=== PATIENT | female | born 1960 | race Caucasian/White ===

== ENCOUNTER → 2017-12-01 11:05 | Outpatient (CLI) | payer OTHER, SELFPAY ==
--- NOTE | 2017-12-01 | DI.MG.S_ITS ---
BILATERAL DIGITAL SCREENING MAMMOGRAM 3D/2D WITH CAD: 12/01/2017 CLINICAL: Screening Mammogram. Comparison is made to exams dated: 11/29/2016 mammogram, 11/28/2015 mammogram, and 11/26/2014 mammogram - [facility]. The tissue of both breasts is extremely dense, which lowers the sensitivity of mammography. Current study was also evaluated with a Computer Aided Detection (CAD) system. There is an oval asymmetry in the left breast posterior depth inner region seen on the craniocaudal view only. No other significant masses, calcifications, or other findings are seen in either breast. IMPRESSION: INCOMPLETE: NEEDS ADDITIONAL IMAGING EVALUATION The oval asymmetry in the left breast is indeterminate. Additional views with possible ultrasound are recommended. This exam was interpreted at Station ID: [id number]. NOTE: For mammograms, a report in lay terms will be sent to the patient. Approximately 15% of breast malignancies will not be visualized mammographically. In the management of a palpable breast mass, a negative mammogram must not discourage biopsy of a clinically suspicious lesion. Electronically Signed By: Alex Logan M.D. ecl/:12/04/2017 02:03:28 letter sent: Additional Imaging Needed ACR BI-RADS Category 0: Incomplete 3340F
== END ==
PROVIDERS: PCP Family Medicine; Visit Provider Family Medicine
DX: Z12.31 Encounter for screening mammogram for malignant neoplasm of breast (principal)
CPT/HCPCS: 77063; 77067

== ENCOUNTER → 2017-12-16 10:18 | Outpatient (CLI) | payer OTHER, SELFPAY ==
--- NOTE | 2017-12-16 | DI.MG.S_ITS ---
UNILATERAL LEFT DIGITAL DIAGNOSTIC MAMMOGRAM 3D/2D WITH ADDITIONAL VIEWS: 12/16/2017 CLINICAL: Additional evaluation requested from prior study. Comparison is made to exams dated: 12/01/2017 mammogram, 11/29/2016 mammogram, and 11/28/2015 mammogram - [facility]. The tissue of left breast is extremely dense, which lowers the sensitivity of mammography. There is a benign oval equal density asymmetry with an indistinct margin in the left breast posterior depth medial region seen on the craniocaudal view only. This is not seen in additional views. No other significant masses or calcifications are seen in the breast. IMPRESSION: There is no mammographic evidence of malignancy. A 1 year screening mammogram is recommended. This exam was interpreted at Station ID: [id number]. NOTE: For mammograms, a report in lay terms will be sent to the patient. Approximately 15% of breast malignancies will not be visualized mammographically. In the management of a palpable breast mass, a negative mammogram must not discourage biopsy of a clinically suspicious lesion. Electronically Signed By: Leandro harmon/jorje:12/16/2017 11:43:59 letter sent: Normal Exam ACR BI-RADS Category 2: Benign Finding(s) 3342F
== END ==
PROVIDERS: PCP Family Medicine; Visit Provider Family Medicine
DX: R92.8 Other abnormal and inconclusive findings on diagnostic imaging of breast (principal)
CPT/HCPCS: 77065; G0279

== ENCOUNTER → 2018-05-12 08:03 | Outpatient (CLI) | payer OTHER, SELFPAY ==
[2018-05-12 09:54] LABS: Vitamin D 25 Hydroxy (D3) 40.3 ng/mL (30.0-100.0)
== END ==
PROVIDERS: PCP Family Medicine; Visit Provider Psychiatry & Neurology Neurology
DX: E55.9 Vitamin D deficiency, unspecified (principal)
CPT/HCPCS: 82306

== ENCOUNTER → 2018-06-12 15:27 | Outpatient (CLI) | payer OTHER, SELFPAY ==
--- NOTE | 2018-06-12 | DI.MRI.S_ITS ---
PROCEDURE: MR STROKE Pre- and post-contrast brain MRI, non-contrast brain MR angiogram, pre- and postcontrast neck MR angiogram INDICATIONS: 4 episodes of left sided vision loss followed by dizziness. TECHNIQUE: Brain: Noncontrast axial T1 spin echo, axial T2 fast spin echo, sagittal and axial FLAIR, coronal T2 fast spin echo, axial gradient echo, axial diffusion and ADC through the brain. After the administration of contrast, axial 3D VIBE of the cranial vasculature and brain. Brain MRA: Non-contrast 3-D time of flight MR angiogram, with multiple sasfxnv-msolrimoz-xgzagcnaje (MIP) reformats performed. Neck MRA: Axial and sagittal TruFISP through the neck. Coronal dynamic MR angiogram during administration of contrast in the arterial and venous phases, with 3-dimenstional hewdeuu-bvakbelsi-xyjsoidsyb (MIP) reformats constructed from subtraction images. COMPARISON: [facility], , MR STROKE PROTOCOL, 07/22/2016, 18:16. FINDINGS: Image quality: Excellent. BRAIN: CSF spaces: Ventricles are normal in size and shape. Basal cisterns are patent. No extra-axial fluid collections. Brain: No intracranial bleeds or mass effects. Small, approximately 6 mm in diameter right frontal, parafalcine extra-axial mass is stable compared to 07/22/2016. Alonzo-white matter interface is normal. Diffusion weighted images show no acute ischemic insults. There is mild, diffuse cerebral white loss. There mild to moderate periventricular and subcortical white matter chronic microvascular ischemic changes which are not significantly changed compared to 07/22/2016. Brainstem appears normal. Normal intravascular flow voids are present. No abnormal intracranial enhancement. Skull and face: Calvarial marrow signal is normal. Orbits appear normal. Sinuses: Sinuses and mastoids are clear. BRAIN MR ANGIOGRAM: Anterior circulation: Intracranial internal carotid arteries are normal in size and enhancement. The flow within the paired anterior cerebral arteries is normal and symmetric. The flow within the middle cerebral arteries is normal and symmetric. The anterior communicating artery is seen. No stenoses, occlusions, or aneurysms. Posterior circulation: The visualized portions of the vertebral arteries demonstrate normal caliber, and join to form a normal appearing basilar artery. The flow within the posterior cerebral arteries is normal and symmetric. No stenoses, occlusions, or aneurysms. NECK MR ANGIOGRAM: Carotids: Great vessels demonstrate a conventional anatomy as they arise from the aortic arch. The origins of the common carotid arteries appear patent. The calibers and courses of both common carotid arteries are normal. The bifurcation regions appear normal bilaterally. The internal carotid arteries demonstrate normal course and caliber. Posterior circulation: The origins of the vertebral arteries appear patent. More superior portions of both vertebral arteries demonstrate normal course and caliber, and join to form a normal appearing basilar artery. Miscellaneous: Subclavian arteries appear patent. Pre-contrast images through the neck show no soft tissue abnormalities. IMPRESSION: BRAIN MRI: 1. No acute intracranial disease process. 2. No areas of acute or chronic infarction. 3. Small, approximately 6 mm in diameter right frontal convexity, parafalcine enhancing extra-axial mass which is stable compared to prior MRI and which likely represents a small meningioma. 4. Mild, diffuse cerebral volume loss. 5. Gfpm-fa-lcoffxbi periventricular and subcortical white matter chronic microvascular ischemic changes. BRAIN MR ANGIOGRAM: Negative examination. NECK MR ANGIOGRAM: Negative examination. Dictated by: Radha Perez MD, PhD on 06/12/2018 at 17:22 Approved by: Radha Perez MD, PhD on 06/12/2018 at 17:30
== END ==
PROVIDERS: PCP Family Medicine; Visit Provider Psychiatry & Neurology Neurology
DX: G45.9 Transient cerebral ischemic attack, unspecified (principal); G35 Multiple sclerosis
CPT/HCPCS: 70548; 70553; A9579

== ENCOUNTER → 2018-12-14 09:24 | Outpatient (CLI) | payer OTHER, SELFPAY ==
--- NOTE | 2018-12-14 09:27 | DI.MG.S_ITS ---
BILATERAL DIGITAL SCREENING MAMMOGRAM 3D/2D WITH CAD: 12/14/2018 CLINICAL: Routine screening. Comparison is made to exams dated: 12/01/2017 mammogram, 11/29/2016 mammogram, and 11/28/2015 mammogram - [facility]. The tissue of both breasts is extremely dense, which lowers the sensitivity of mammography. Current study was also evaluated with a Computer Aided Detection (CAD) system. No significant masses, calcifications, or other findings are seen in either breast. There has been no significant interval change. IMPRESSION: NEGATIVE There is no mammographic evidence of malignancy. A 1 year screening mammogram is recommended. This exam was interpreted at Station ID: [id number]. NOTE: For mammograms, a report in lay terms will be sent to the patient. Approximately 15% of breast malignancies will not be visualized mammographically. In the management of a palpable breast mass, a negative mammogram must not discourage biopsy of a clinically suspicious lesion. Electronically Signed By: Leandro harmon/jorje:12/14/2018 13:53:13 letter sent: Normal Exam ACR BI-RADS Category 1: Negative 3341F
== END ==
PROVIDERS: PCP Family Medicine; Visit Provider Family Medicine
DX: Z12.31 Encounter for screening mammogram for malignant neoplasm of breast (principal)
CPT/HCPCS: 77063; 77067

== ENCOUNTER → 2019-12-17 08:10 | Outpatient (CLI) | payer OTHER, SELFPAY ==
--- NOTE | 2019-12-17 | DI.MG.S_ITS ---
BILATERAL DIGITAL SCREENING MAMMOGRAM 3D/2D WITH CAD: 12/17/2019 CLINICAL: Routine screening. Comparison is made to exams dated: 12/14/2018 mammogram, 12/16/2017 mammogram, and 12/01/2017 mammogram - [facility]. The tissue of both breasts is extremely dense, which lowers the sensitivity of mammography. Current study was also evaluated with a Computer Aided Detection (CAD) system. No significant masses, calcifications, or other findings are seen in either breast. There has been no significant interval change. IMPRESSION: NEGATIVE There is no mammographic evidence of malignancy. A 1 year screening mammogram is recommended. This exam was interpreted at Station ID: [id number]. NOTE: For mammograms, a report in lay terms will be sent to the patient. Approximately 15% of breast malignancies will not be visualized mammographically. In the management of a palpable breast mass, a negative mammogram must not discourage biopsy of a clinically suspicious lesion. Electronically Signed By: Thu pearson/jorje:12/19/2019 12:11:13 letter sent: Normal Exam ACR BI-RADS Category 1: Negative 3341F
== END ==
PROVIDERS: PCP Family Medicine; Referring Provider Family Medicine; Visit Provider Family Medicine
DX: Z12.31 Encounter for screening mammogram for malignant neoplasm of breast (principal)
CPT/HCPCS: 77063; 77067

== ENCOUNTER → 2020-03-03 11:59 | Outpatient (CLI) | payer OTHER, SELFPAY ==
--- NOTE | 2020-03-03 12:07 | DI.RAD.S_ITS ---
PROCEDURE: XR CERVICAL SPINE 2V OR 3V INDICATIONS: POST SURGERY FALL TECHNIQUE: 3 view(s) of the cervical spine were acquired. COMPARISON: [facility] [place], CR, XR CERVICAL SPINE 2 OR 3 VIEWS, 12/22/2016, 9:10. FINDINGS: Bones: No fracture. Straightening of the normal lordotic curvature. Chronic osseous fusion of the C4-C5-C5-C6 vertebral bodies. There is also C6-C7 ACDF with interbody cage graft. Remaining cervical disc spaces mildly narrowed. Multilevel degenerative endplate sclerosis and spurring. Diffuse facet arthropathy. There is lucency at the bone metal interface of the inferior fixation screws at C7 Soft tissues: No prevertebral soft tissue swelling. IMPRESSION: No acute fracture identified. Chronic postsurgical and degenerative changes as above. Incidentally noted lucency at the bone metal interface of the inferior C6-C7 ACDF screws which is progressed since 12/22/16, raising possibility of hardware loosening or infection however this is technically indeterminate given the absence of more recent comparison studies. If clinically warranted, continued serial radiographic surveillance could be performed. Dictated by: Oscar Ahn M.D. on 03/03/2020 at 14:54 Approved by: Oscar Ahn M.D. on 03/03/2020 at 14:57
== END ==
PROVIDERS: PCP Family Medicine; Referring Provider Neurological Surgery; Visit Provider Neurological Surgery
DX: M47.22 Other spondylosis with radiculopathy, cervical region (principal); Z98.1 Arthrodesis status
CPT/HCPCS: 72040

== ENCOUNTER 2020-11-16 10:41 | Emergency (ER) | payer OTHER, SELFPAY ==
[2020-11-16 10:50] VITALS: BP 183/99; PULSE 76; RESP 14; TEMP 36.5; O2SAT 100; BMI 20.1
[2020-11-16 11:18] LABS: COVID19 -Nasal RAPID Negative (Negative)
--- NOTE | 2020-11-16 11:22 | ED_ITS ---
HPI - Headache General Chief Complaint: Headache Stated Complaint: Migraine- numbness in hands/mouth, weakness Time Seen by Provider: 11/16/20 11:13 Mode of arrival: Ambulatory Limitations: no limitations History of Present Illness HPI Narrative: Patient is a 60-year-old female. Has a history of migraine headaches. Also has a history of MS. A neurologist that she sees. States that she has had atypical migraines in the past. Has had hemiplegic migraines. States over the past several days/weeks she has had more frequent headaches. Normally she just takes Tylenol at home goes and lays down and this helps her symptoms. This morning she woke up did not have a headache but it did start as the day went on. She also stated that she had some tingling in her left hand and also some tingling around her mouth. She states that the oral symptoms have resolved and the tingling in her left hand has improved but not completely resolved. States that the headache an care doctor feels like to switch of her prior headaches. She did take 1 regular strength Tylenol approximately 1 hour prior to arrival here in the ER. Related Data Home Medications Medication Instructions Recorded Confirmed vitamin B complex (B 1 tab PO QDAY #0 09/13/16 11/16/20 Complex-Vitamin B12) aspirin 81 mg tablet,delayed 81 mg PO DAILY 12/26/19 11/16/20 release Allergies Allergy/AdvReac Type Severity Reaction Status Date / Time levofloxacin [LEVOFLOXACIN] Allergy Unknown Verified 11/16/20 10:54 Review of Systems Constitutional Constitutional: Denies fever(s) and Reports headache(s) Eyes Comments: Black spots in her eyes but this normally happens with headaches ENT Ears, Nose, Mouth, and Throat: Reports system reviewed and no additional complaints, except as documented, Reports as per HPI and Reports headache(s) Cardiovascular Cardiovascular: Reports system reviewed and no additional complaints, except as documented Respiratory Respiratory: Reports system reviewed and no additional complaints, except as documented Musculoskeletal Musculoskeletal: Reports system reviewed and no additional complaints, except as documented Integumentary/Breasts Skin/Breast: Reports system reviewed and no additional complaints, except as documented Neurologic Neurologic: Reports system reviewed and no additional complaints, except as documented and Reports headache(s) Hematologic/Lymphatic On Anticoagulants: No Allergic/Immunologic Allergic/Immunologic: Reports system reviewed and no additional complaints, except as documented Patient History Medical History Multiple sclerosis Stenosis, cervical spine Vaginal atrophy (~06/2020) Surgical History (Updated 06/07/17 @ 06:15 by Conversion Provider) History of hip replacement History of spinal fusion Family History (Updated 02/11/15 @ 00:00 by Conversion Provider) Father Cancer Heart disease Mother Diabetes mellitus Heart disease Hypertension High cholesterol Stroke Social History Smoking Status: Never smoker Smoking Status: Never smoker alcohol intake frequency: 0-2 drinks per day Substance Use Type: does not use Exam Initial Vital Signs Initial Vital Signs: Vital Signs Temperature 97.7 F 11/16/20 10:50 Pulse Rate 76 11/16/20 10:50 Respiratory Rate 14 11/16/20 10:50 Blood Pressure 183/99 H 11/16/20 10:50 Pulse Oximetry 100 11/16/20 10:50 Const General: cooperative and healthy appearing HENNE Head: normal to inspection and normocephalic Face and sinus: normal facial exam Mouth: oral mucosae normal Eyes General: appearance normal, both eyes and all related structures Resp Effort & Inspection: normal respiratory effort Cardio Rate: regular rate GI Inspection: normal to inspection Skin General: no rashes or lesions noted Neuro General: patient alert, patient awake, patient oriented x3 and moves all extremities Cranial Nerves: CN's II-XI intact bilaterally Cognition: normal cognition Speech: speech normal Motor: muscle tone normal throughout Sensory Exam: no sensory deficits noted Extrem General: normal to inspection and capillary refill normal Course Orders Ordered: ED Orders 11/16/20 10:56 COVID19 -Nasal swab/Pre-Proc Stat 11/16/20 11:15 Basic Metabolic Panel Stat Complete Blood Count AUTO DIFF Stat Discontinued Medications Acetaminophen (Acetaminophen 325 Mg Tablet) 650 mg PO NOW ONE Stop: 11/16/20 11:24 Last Admin: 11/16/20 11:38 Dose: 650 mg Documented by: CTR.HANDER Diphenhydramine HCl (Diphenhydramine 50 Mg/Ml Vial) 25 mg IV NOW ONE Stop: 11/16/20 11:24 Last Admin: 11/16/20 11:37 Dose: 25 mg Documented by: CTR.HANDER Sodium Chloride (Normal Saline 0.9%) 1,000 mls @ 1,000 mls/hr IV BOLUS ONE Stop: 11/16/20 12:22 Last Admin: 11/16/20 11:37 Dose: 1,000 mls/hr Documented by: CTR.HANDER Ketorolac Tromethamine (Ketorolac 30 Mg/Ml Vial) 60 mg IM NOW ONE Stop: 11/16/20 11:24 Last Admin: 11/16/20 11:37 Dose: 60 mg Documented by: CTRNishaHANDER Metoclopramide HCl (Metoclopramide 10 Mg/2 Ml Inj) 10 mg IV NOW ONE Stop: 11/16/20 11:24 Last Admin: 11/16/20 11:37 Dose: 10 mg Documented by: CTRLOTTIE Vital Signs Vital signs: Vital Signs - 8 hr 11/16/20 10:50 11/16/20 11:57 Temperature 97.7 F Pulse Rate 76 66 Respiratory Rate 14 18 Blood Pressure 183/99 H 136/79 Pulse Oximetry 100 100 MDM - Headache Lab Data Result diagrams: 11/16/20 11:15 11/16/20 11:15 Labs: Lab Results 11/16/20 11/16/20 11/16/20 Range/Units 10:56 11:15 11:15 WBC 6.2 (4.5-11.0) X10^3/uL RBC 4.43 (4.0-5.2) X10^6/uL Hgb 14.0 (12.0-16.0) g/dL Hct 42.1 (36-46) % MCV 94.9 (80-100) fL MCH 31.5 (26-34) PG MCHC 33.1 (30-36) % RDW 12.3 (11.6-14.8) % Plt Count 320 (150-400) X10^3/uL Neut % (Auto) 60.4 (50-75) % Lymph % (Auto) 28.5 (25-40) % [place] % (Auto) 6.6 (3-14) % Eos % (Auto) 3.3 (2-4) % Baso % (Auto) 1.2 (0-2) % Neut # (Auto) 3800 (2093-1418) /uL Lymph # (Auto) 1800 (2429-7258) /uL [place] # (Auto) 400 (0-900) /uL Eos # (Auto) 200 (0-450) /uL Baso # (Auto) 100 (0-100) /uL Sodium 136 L (137-145) mmol/L Potassium 4.3 (3.4-5.1) mmol/L Chloride 99 (98-107) mmol/L Carbon Dioxide 30 (22-32) mmol/L BUN 15 (7-17) mg/dL Creatinine 0.71 (0.52-1.04) mg/dL Estimated GFR > 60.0 (>60) mL/min BUN/Creatinine Ratio 21.1 (6-22) Glucose 134 H (80-110) mg/dL Calcium 9.1 (8.4-10.2) mg/dL SARS-CoV-2 (PCR) Negative (Negative) MDM Narrative Medical decision making narrative: Patient reports complete resolution of all of her symptoms with the medications provided here in the emergency department. I have low suspicion for meningitis. Low suspicion for intracerebral hemorrhage. Feel that we can hold on any radiologic studies. Low suspicion for CVA. Patient asking to be discharged home. She was given return precautions and follow-up instructions. She expressed understanding and agreement. Discharge Plan Departure Patient Disposition: Home Clinical Impression: Migraine Instructions: DI for Migraine Activity Restrictions/Additional Instructions: I recommend you contact your primary doctor for follow-up and continue to take all of your medications as directed. Return to the emergency department for any new or worsening symptoms. Prescriptions: No Action vitamin B complex [B Complex-Vitamin B12] 1 EACH tablet 1 tab PO QDAY Qty: 0 RF: 0 aspirin 81 mg tablet,delayed release (DR/EC) 81 mg PO DAILY RF: 0 Referrals: Yaz Ordaz MD [Primary Care Provider] -
[2020-11-16 11:34] LABS: Add Manual Diff / Slide Review NO; Basophils Absolute Auto 100 /uL (0-100); Basophils Percent Auto 1.2 % (0-2); Eosinophils Absolute Auto 200 /uL (0-450); Eosinophils Percent Auto 3.3 % (2-4); Hematocrit 42.1 % (36-46); Lymphocytes Absolute Auto 1800 /uL (1100-4500); Lymphocytes Percent Auto 28.5 % (25-40); Mean Corpuscular HGB Conc 33.1 % (30-36); Mean Corpuscular Hemoglobin 31.5 PG (26-34); Mean Corpuscular Volume 94.9 fL (80-100); Monocytes Absolute Auto 400 /uL (0-900); Monocytes Percent Auto 6.6 % (3-14); Neutrophils Absolute Auto 3800 /uL (1500-7000); Neutrophils Percent Auto 60.4 % (50-75); Platelet Count 320 X10^3/uL (150-400); Red Blood Cell Count 4.43 X10^6/uL (4.0-5.2); Red Cell Distribution Width 12.3 % (11.6-14.8); White Blood Cell Count 6.2 X10^3/uL (4.5-11.0)
[2020-11-16] MEDS: KETOROLAC 30 MG/ML VIAL 60 MG IM (11:37)
[2020-11-16] MEDS: METOCLOPRAMIDE 10 MG/2 ML INJ IV (11:37)
[2020-11-16] MEDS: diphenhydrAMINE 50 MG/ML VIAL 25 MG IV (11:37)
[2020-11-16] MEDS: SODIUM CHLORIDE 0.9% 1,000 ML 1000 ML IV (11:37)
[2020-11-16] MEDS: ACETAMINOPHEN 325 MG TABLET 650 MG PO (11:38)
[2020-11-16 11:57] VITALS: BP 136/79; PULSE 66; RESP 18; O2SAT 100
[2020-11-16 12:30] LABS: BUN Creatinine Ratio 21.1 (6-22); Blood Urea Nitrogen 15 mg/dL (7-17); Calcium 9.1 mg/dL (8.4-10.2); Carbon Dioxide 30 mmol/L (22-32); Chloride 99 mmol/L (98-107); Estimated Glomerular Filt Rate > 60.0 mL/min (>60); Glucose 134 mg/dL (80-110); HEMOLYSIS < 15 (0-50); Potassium 4.3 mmol/L (3.4-5.1); Sodium 136 mmol/L (137-145)
[2020-11-16 13:16] VITALS: BP 118/66; PULSE 65; RESP 16; O2SAT 99
== END 2020-11-16 13:17 | disposition home or self-care (01) ==
PROVIDERS: Emergency Provider Emergency Medicine; PCP Family Medicine
DX: G43.909 Migraine, unspecified, not intractable, without status migrainosus (principal); Z20.822 Contact with and (suspected) exposure to COVID-19
CPT/HCPCS: 36415; 80048; 85025; 87635; 96361; 96372; 96374; 96375; 99284; C9803; J1200; J1885; J2765

== ENCOUNTER → 2021-03-02 07:58 | Outpatient (CLI) | payer OTHER, SELFPAY ==
[2021-03-02 08:45] LABS: Add Manual Diff / Slide Review NO; Basophils Absolute Auto 100 /uL (0-100); Eosinophils Absolute Auto 100 /uL (0-450); Eosinophils Percent Auto 1.8 % (2-4); Hemoglobin 12.7 g/dL (12.0-16.0); Lymphocytes Absolute Auto 1700 /uL (1100-4500); Lymphocytes Percent Auto 24.3 % (25-40); Mean Corpuscular HGB Conc 34.3 % (30-36); Mean Corpuscular Volume 93.2 fL (80-100); Monocytes Absolute Auto 400 /uL (0-900); Monocytes Percent Auto 5.9 % (3-14); Neutrophils Absolute Auto 4700 /uL (1500-7000); Platelet Count 322 X10^3/uL (150-400); Red Blood Cell Count 3.97 X10^6/uL (4.0-5.2); Red Cell Distribution Width 12.4 % (11.6-14.8); White Blood Cell Count 7.1 X10^3/uL (4.5-11.0)
[2021-03-02 08:58] LABS: Alanine Aminotransferase 15 IU/L (<35); Albumin 4.2 g/dL (3.5-5.0); Albumin Globulin Ratio 1.7 (1.0-2.8); Alkaline Phosphatase 65 U/L (38-126); Aspartate Aminotransferase 28 IU/L (14-36); BUN Creatinine Ratio 22.4 (6-22); Bilirubin Total 0.6 mg/dL (0.2-1.3); Blood Urea Nitrogen 17 mg/dL (7-17); Calcium 9.3 mg/dL (8.4-10.2); Carbon Dioxide 26 mmol/L (22-32); Chloride 103 mmol/L (98-107); Estimated Glomerular Filt Rate > 60.0 mL/min (>60); Globulin 2.5 g/dL (1.7-4.1); Glucose 101 mg/dL (80-110); HEMOLYSIS < 15 (0-50); Potassium 4.5 mmol/L (3.4-5.1); Sodium 134 mmol/L (137-145); Total Protein 6.7 g/dL (6.3-8.2)
== END ==
PROVIDERS: PCP Family Medicine; Referring Provider Obstetrics & Gynecology Gynecologic Oncology; Visit Provider Obstetrics & Gynecology Gynecologic Oncology
DX: C54.1 Malignant neoplasm of endometrium (principal)
CPT/HCPCS: 36415; 80053; 85025

== ENCOUNTER → 2021-03-04 07:46 | Outpatient (CLI) | payer OTHER, SELFPAY ==
--- NOTE | 2021-03-04 | DI.CT.S_ITS ---
PROCEDURE: CT CHEST ABDOMEN W CON INDICATIONS: Malignant neoplasm of endometrium TECHNIQUE: After the administration of oral contrast and intravenous contrast, 5 mm thick sections acquired from the lung apices to the iliac crests. 5 mm coronal and sagittal reformats were performed, with additional 7 mm coronal MIP reformats through the lungs. For radiation dose reduction, the following was used: automated exposure control, adjustment of mA and/or kV according to patient size. COMPARISON: None. FINDINGS: Image quality: Excellent. CHEST: Lungs and pleura: 4 mm solid nodule is seen in anterior aspect of left upper lobe series 3, image 79. 2 mm solid nodule is seen in lateral periphery of right middle lobe series 3, image 158. 3-4 mm solid nodule is seen in posterior aspect of left lung base series 3, image 261. Scattered atelectasis in periphery of bilateral lung mulligan are seen. Atelectasis in anterior medial aspect of bilateral lung bases also seen. No pleural effusions or pneumothorax. Central and peripheral airways are patent and normal in caliber. Mediastinum: Heart size is normal. No pericardial effusion. No mediastinal or hilar adenopathy by size criteria. Thoracic aorta and central pulmonary arteries are normal in size. Esophagus is normal in caliber. No hiatal hernia. Chest wall: No axillary or supraclavicular adenopathy by size criteria. Thyroid gland is within normal limits. ABDOMEN: Solid organs: Liver is normal in size and enhancement. Gallbladder is within normal limits. Biliary system is non dilated. Pancreas enhances normally. Spleen is normal in size and enhancement. No adrenal nodules. Kidneys are normal in size and enhancement, without hydronephrosis. Peritoneum and bowel: Bowel loops demonstrate normal wall thickness and caliber. No free fluid or air. Nodes and vessels: No retroperitoneal or mesenteric adenopathy by size criteria. Aorta and inferior vena cava are normal in caliber. Bones: No suspicious bony lesions. No vertebral body compression fractures. Postfusion changes in visualized lower cervical spine are seen. Miscellaneous: No ventral hernias. IMPRESSION: 1. Tiny 3-4 mm bilateral pulmonary nodules as described above and are of indeterminate nature. CT follow-up in 6-12 months can be done for evaluation of stability. Bibasilar atelectasis as above. Scattered atelectasis/scarring also seen in periphery of bilateral lung mulligan. No pleural effusion or pneumothorax. Airway is patent. 2. No abnormally enlarged lymph nodes are seen in chest or abdomen. 3. No evidence of metastatic disease is seen in abdomen. Dictated by: Franco Lyle M.D. on 03/04/2021 at 10:06 Approved by: Franco Lyle M.D. on 03/04/2021 at 10:36
--- NOTE | 2021-03-04 | DI.MRI.S_ITS ---
PROCEDURE: MR PELVIS WO/W CON INDICATIONS: Malignant neoplasm of endometrium TECHNIQUE: Coronal HASTE, sagittal breath-hold T2 FSE; axial T1 FSE with and without fat saturation through the pelvis. Optional long- and short-axis uterine nonbreath-hold T2 FSE through the uterus. Sagittal or axial dynamic VIBE during administration of contrast. Post-contrast axial or coronal VIBE/2-D FLASH with fat saturation from the iliac crests to the symphysis. Optional diffusion weighted imaging and ADC may be performed. COMPARISON: [facility], US, US PELVIC COMPLETE, 02/17/2021, 14:52. [facility], CT, CT CHEST ABDOMEN W CON, 03/04/2021, 9:38. FINDINGS: Image quality: There is mild motion artifact. A left hip prosthesis with associated metallic susceptibility artifact is demonstrated limiting evaluation. Uterus: There is a lobulated T1 hypointense and T2 isointense mass along the endometrial canal centered within the lower uterine segment with extension into the cervix as well as intramural extension into the myometrium within the right aspect of the uterine fundus. The confluent region of the mass in the lower uterine segment and fundus measures approximately 6 cm in longitudinal extent by approximately 3.5 cm in anteroposterior and 3.1 cm in transverse dimension. Addition, contiguous lobulated components are demonstrated extending within the right myometrium distally into the uterine fundus. There is suggestion of extrauterine extension along the right dorsal aspect of the uterine fundus with abutment of adjacent bowel loops. The mass demonstrates hypointense enhancement following contrast administration. There is associated marked fluid distention of the endometrium in the fundus measuring up to 3.7 cm in anterosuperior dimension secondary to obstruction of the endometrium in the lower uterine segment. The mass demonstrates no definite vaginal extension. Adnexa: The ovaries are within normal size limits. There is extrinsic mass effect on the right ovary by a large tubular cystic structure in the right hemipelvis which measures up to 3.6 cm in diameter. A small amount of dependent debris is demonstrated within the tubular structure without internal solid enhancement following contrast administration. Findings are suggestive of marked hydrosalpinx. Urinary system: Bladder wall is normal in thickness. Distal ureters are non distended. Urethra appears normal in morphology. Nodes and vessels: No pelvic or inguinal adenopathy by size criteria. Iliac vessels are normal in size. Bowel and peritoneum: No pathologic free pelvic fluid. Inferior colon and small bowel loops are normal in caliber. Soft tissues: No inguinal hernias. Bones: Marrow demonstrates normal overall signal. IMPRESSION: 1. Lobulated mass along the endometrium centered in the lower uterine segment consistent with patient's history of endometrial carcinoma. 2. Mass extension demonstrated into the cervix as well as into the right myometrium in the uterine fundus. There is also a small focus of likely extrauterine extension along the right dorsal aspect of the uterus with abutment of adjacent bowel loops. 3. Large tubular cystic structure within the right hemipelvis likely represents marked hydrosalpinx. No obstruction noted within the right renal collecting system on recent CT to suggest hydroureter. There is dependent debris within the cystic structure without internal solid enhancement. 4. No pelvic lymphadenopathy by size criteria. 5. Fluid distention of the endometrial canal in the fundus consistent with endometrial obstruction in the lower uterine segment. Dictated by: Leandro Blackman M.D. on 03/04/2021 at 13:08 Approved by: Leandro Blackman M.D. on 03/04/2021 at 13:52
== END ==
PROVIDERS: PCP Family Medicine; Referring Provider Obstetrics & Gynecology Gynecologic Oncology; Visit Provider Obstetrics & Gynecology Gynecologic Oncology
DX: C54.1 Malignant neoplasm of endometrium (principal); R91.8 Other nonspecific abnormal finding of lung field; J98.11 Atelectasis
CPT/HCPCS: 71260; 72197; 74160; A9579; Q9967

== ENCOUNTER → 2021-03-07 08:46 | Outpatient (CLI) | payer OTHER, SELFPAY | PROVIDERS: PCP Family Medicine; Referring Provider Obstetrics & Gynecology Gynecologic Oncology; Visit Provider Obstetrics & Gynecology Gynecologic Oncology | DX: Z01.818 Encounter for other preprocedural examination (principal) | CPT/HCPCS: 93005 ==

== ENCOUNTER 2021-03-14 03:41 | Emergency (ER) | payer OTHER, SELFPAY ==
[2021-03-14 03:45] VITALS: BP 176/70; PULSE 87; RESP 18; TEMP 36.7; O2SAT 98; BMI 19.2
--- NOTE | 2021-03-14 03:55 | ED.FEMALEGU ---
HPI - Female Genitourinary General Chief complaint: Urogenital-Female Stated complaint: catheter not draining properly Time Seen by Provider: 03/14/21 03:47 History of Present Illness HPI Narrative: Patient had is a 60-year-old female who is status post hysterectomy day number 3. She had hysterectomy at [facility] for probable cancer. She had a Le catheter placed postoperatively. Tonight she feels like she does not have as much urine in his her Le catheter bag and she is having increased left lower quadrant pain. She denies any fever or chills. She has been taking Tylenol and ibuprofen to control pain. She denies any nausea or vomiting. She has not had a bowel movement but is had passing gas and taking MiraLax. Related Data Home Medications Medication Instructions Recorded Confirmed vitamin B complex (B 1 tab PO QDAY #0 09/13/16 02/17/21 Complex-Vitamin B12) aspirin 81 mg tablet,delayed 81 mg PO DAILY 12/26/19 02/17/21 release Allergies Allergy/AdvReac Type Severity Reaction Status Date / Time levofloxacin [LEVOFLOXACIN] Allergy Unknown Verified 02/17/21 14:25 Review of Systems Review of Systems Narrative: GENERAL: Denies chills, fatigue, malaise, fever, sweats, travel HEENT: Denies sinus pain, ear pain, sore throat, difficulty swallowing, neck pain RESPIRATORY: Denies dyspnea, cough, wheezing, hemoptysis, sputum. CARDIOVASCULAR: Denies chest pain, palpitations, orthopnea, edema GASTROINTESTINAL: See HP : Denies dysuria, frequency, incontinence, hematuria, urinary retention, flank pain. MUSCULOSKELETAL: Denies weakness, joint pain, or bony pain SKIN: No rash, no erythema, no pruritus NEUROLOGIC: Denies weakness, dizziness, headache, numbness, change in speech, confusion PSYCHIATRIC: No concerning psychosocial issues. 12 point review of systems is negative except for those stated above and HPI Patient History Medical History Multiple sclerosis Stenosis, cervical spine Vaginal atrophy (~06/2020) Surgical History History of hip replacement History of spinal fusion Family History Father Cancer Heart disease Mother Diabetes mellitus Heart disease Hypertension High cholesterol Stroke alcohol intake frequency: 0-2 drinks per day Substance Use Type: does not use Exam Initial Vital Signs Initial Vital Signs: Vital Signs Temperature 98.1 F 03/14/21 03:45 Pulse Rate 87 03/14/21 03:45 Respiratory Rate 18 03/14/21 03:45 Blood Pressure 176/70 H 03/14/21 03:45 Pulse Oximetry 98 03/14/21 03:45 GENERAL: Alert well-appearing 60-year-old female in no acute distress. HEENT: Head atraumatic,EOMI, pupils reactive, face symmetric, moist mucous membranes CARDIOVASCULAR: Regular rate and rhythm without murmurs, rubs or gallops. RESPIRATORY: Breath sounds equal bilaterally, no wheezes rales or rhonchi. ABDOMEN: Soft, mild left lower quadrant pain without guarding rebound incision sites are clean and dry with Steri-Strips : Le catheter in place there is urine in bag EXTREMITIES: Normal range of motion, no clubbing or edema. Neurovascularly intact NEUROLOGICAL: Alert and oriented x4. SKIN: Warm, dry, no laceration, no petechiae, no rashes or lesions. Course Orders Ordered: ED Orders 03/14/21 04:04 CT abdomen pelvis w con Stat 03/14/21 04:15 CBC Auto Diff [Complete Blood Count AUTO DIFF] Stat CMP [Comprehensive Metabolic Panel] Stat Lactate (Lactic Acid) Stat 03/14/21 04:20 UA Complete [Urinalysis and Microscopic] Stat Vital Signs Vital signs: Vital Signs - 8 hr 03/14/21 03:45 Temperature 98.1 F Pulse Rate 87 Respiratory Rate 18 Blood Pressure 176/70 H Pulse Oximetry 98 MDM - Female Genitourinary Lab Data Result diagrams: 03/14/21 04:15 03/14/21 04:15 Labs: Lab Results 03/14/21 03/14/21 03/14/21 Range/Units 04:15 04:15 04:15 WBC 5.0 (4.5-11.0) X10^3/uL RBC 3.58 L (4.0-5.2) X10^6/uL Hgb 11.0 L (12.0-16.0) g/dL Hct 32.4 L (36-46) % MCV 90.3 (80-100) fL MCH 30.6 (26-34) PG MCHC 33.9 (30-36) % RDW 15.5 H (11.6-14.8) % Plt Count 320 (150-400) X10^3/uL Neut % (Auto) 48.9 L (50-75) % Lymph % (Auto) 38.2 (25-40) % [place] % (Auto) 5.7 (3-14) % Eos % (Auto) 4.5 H (2-4) % Baso % (Auto) 2.7 H (0-2) % Neut # (Auto) 2500 (1540-5472) /uL Lymph # (Auto) 1900 (8779-1245) /uL Haywood # (Auto) 300 (0-900) /uL Eos # (Auto) 200 (0-450) /uL Baso # (Auto) 100 (0-100) /uL Sodium 137 (137-145) mmol/L Potassium 3.9 (3.4-5.1) mmol/L Chloride 108 H (98-107) mmol/L Carbon Dioxide 29 (22-32) mmol/L BUN 12 (7-17) mg/dL Creatinine 0.72 (0.52-1.04) mg/dL Estimated GFR > 60.0 (>60) mL/min BUN/Creatinine Ratio 16.7 (6-22) Glucose 111 H (80-110) mg/dL Lactate 1.0 (0.7-2.1) mmol/L Calcium 8.4 (8.4-10.2) mg/dL Total Bilirubin 0.3 (0.2-1.3) mg/dL AST 33 (14-36) IU/L ALT 17 (<35) IU/L Alkaline Phosphatase 49 (38-126) U/L Total Protein 5.7 L (6.3-8.2) g/dL Albumin 3.2 L (3.5-5.0) g/dL Globulin 2.5 (1.7-4.1) g/dL Albumin/Globulin Ratio 1.3 (1.0-2.8) Urine Color Urine Appearance Urine pH (4.5-8.0) Ur Specific [place] (1.000-1.035) Urine Protein (Negative) Urine Glucose (UA) (Negative) g/dL Urine Ketones (NEGATIVE) Urine Occult Blood (Negative) Urine Nitrate (Negative) Urine Bilirubin (NEGATIVE) Urine Urobilinogen (0.2) E.U./dL Ur Leukocyte Esterase (NEGATIVE) Urine RBC (0-5/HPF) Urine WBC (0-5/HPF) Ur Squamous Epith Cells (0-5/HPF) Urine Bacteria (None) Ur Culture Indicated? 03/14/21 Range/Units 04:20 WBC (4.5-11.0) X10^3/uL RBC (4.0-5.2) X10^6/uL Hgb (12.0-16.0) g/dL Hct (36-46) % MCV (80-100) fL MCH (26-34) PG MCHC (30-36) % RDW (11.6-14.8) % Plt Count (150-400) X10^3/uL Neut % (Auto) (50-75) % Lymph % (Auto) (25-40) % [place] % (Auto) (3-14) % Eos % (Auto) (2-4) % Baso % (Auto) (0-2) % Neut # (Auto) (9299-3230) /uL Lymph # (Auto) (2158-1591) /uL Haywood # (Auto) (0-900) /uL Eos # (Auto) (0-450) /uL Baso # (Auto) (0-100) /uL Sodium (137-145) mmol/L Potassium (3.4-5.1) mmol/L Chloride (98-107) mmol/L Carbon Dioxide (22-32) mmol/L BUN (7-17) mg/dL Creatinine (0.52-1.04) mg/dL Estimated GFR (>60) mL/min BUN/Creatinine Ratio (6-22) Glucose (80-110) mg/dL Lactate (0.7-2.1) mmol/L Calcium (8.4-10.2) mg/dL Total Bilirubin (0.2-1.3) mg/dL AST (14-36) IU/L ALT (<35) IU/L Alkaline Phosphatase (38-126) U/L Total Protein (6.3-8.2) g/dL Albumin (3.5-5.0) g/dL Globulin (1.7-4.1) g/dL Albumin/Globulin Ratio (1.0-2.8) Urine Color Yellow Urine Appearance Clear Urine pH 7.5 (4.5-8.0) Ur Specific [place] 1.015 (1.000-1.035) Urine Protein Trace H (Negative) Urine Glucose (UA) Trace H (Negative) g/dL Urine Ketones Negative (NEGATIVE) Urine Occult Blood Trace-lysed (Negative) Urine Nitrate Negative (Negative) Urine Bilirubin Negative (NEGATIVE) Urine Urobilinogen 0.2 (0.2) E.U./dL Ur Leukocyte Esterase Negative (NEGATIVE) Urine RBC 1-5/hpf (0-5/HPF) Urine WBC 0-1/hpf (0-5/HPF) Ur Squamous Epith Cells 0-1 /hpf (0-5/HPF) Urine Bacteria Occasional (0-1) (None) Ur Culture Indicated? Cult not indicated Urine Dip Bedside Urine Glucose Negative Bedside Urine Bilirubin - Negative Bedside Urine Ketone - Negative Urine Specific [place] 1.015 Bedside Urine Occult Blood + Bedside Urine pH 7.5 Bedside Urine Protein +/- 15 Bedside Urine Urobilinogen - Negative Bedside Urine Nitrite - Negative Bedside Urine Leukocytes - Negative Esterase Imaging Data CT scan - abdomen/pelvis: Radiologist's Impression: Preliminary report: Postsurgical changes of recent hysterectomy. Small volume non loculated fluid in the pelvis. Large amount of retained fecal material throughout colon which may indicate constipation/adynamic ileus. Enlarged left common iliac lymph noted nonspecific potentially reactive MDM Narrative Medical decision making narrative: At this time patient is having some left lower quadrant pain thought to be a Le catheter problem. Catheter appears to be working well it flushes easily and there is urine in the bag. CT does not show any abnormality but does confirm constipation. Blood work urinalysis are overall reassuring. Discussion of treatment constipation with patient. All questions have been. Discharge Plan Departure Patient Disposition: Home Clinical Impression: Constipation Instructions: DI for Constipation Activity Restrictions/Additional Instructions: *You have been diagnosed with constipation *What to do: At this time Le catheter seems to be working appropriately. There is no sign of infection. Pain in abdomen today is found to be due to constipation. Continue bowel regimen. 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
--- NOTE | 2021-03-14 04:04 | DI.CT.S_ITS ---
PROCEDURE: CT ABDOMEN PELVIS W CON INDICATIONS: left lower quad pain s/p hysterectomy TECHNIQUE: After the administration of oral and IV contrast, axial sections were acquired from the lung bases to the pubic symphysis. Coronal and sagittal reformats were performed. For radiation dose reduction, the following was used: automated exposure control, adjustment of mA and/or kV according to patient size. COMPARISON: [facility], US, US PELVIC COMPLETE, 02/17/2021, 14:52. [facility], MR, MR PELVIS WO/W CON, 03/04/2021, 8:17. [facility], CT, CT CHEST ABDOMEN W CON, 03/04/2021, 9:38. FINDINGS: Image quality: There is artifact associated with the metallic hardware. Lung bases: Unremarkable. Heart: No significant findings. ABDOMEN: Liver: Unremarkable. Gallbladder: Unremarkable. Biliary ducts: Unremarkable. Pancreas: Unremarkable. Spleen: Unremarkable. Incidental note is made of an accessory splenule along the anterior aspect of the primary spleen. Adrenal Glands: Unremarkable. Kidneys and Ureters: Unremarkable. Stomach and Bowel: Stomach, small bowel loops, and colon are unremarkable. There is a moderate amount of stool seen within the colon. Peritoneum: No abnormal intraperitoneal fluid. No free air. Ventral Wall: No hernia. Relatively prominent soft tissue gas can be seen, which is consistent with the patient's recent surgery. Abdominal Nodes: No retroperitoneal or mesenteric adenopathy by size criteria. Vessels: Aorta and inferior vena cava are normal in size. PELVIS: Pelvic Organs: Hysterectomy changes are seen. No findings abscess can be seen to the limits of the study, with streak artifact. No adnexal masses can be seen on either side. A small amount of free fluid is seen within the pelvis. Bladder: A Le catheter is seen, which decompresses the bladder. Pelvic Nodes: There is a mildly enlarged left common iliac lymph node seen, as on series 2, image 54 measuring 12 x 19 mm in greatest axial dimension. Miscellaneous: No inguinal hernias are seen. Bones: Left hip arthroplasty hardware is seen, with associated streak artifact. Focal L5-S1 degenerative change is seen. Milder degenerative changes are seen elsewhere. IMPRESSION: Status post hysterectomy, without abscess or other acute postoperative abnormality. A small amount of free fluid is seen within the pelvis, which is considered to be within postoperative limits. There is a mildly enlarged left common iliac artery lymph node. Differential diagnosis includes a reactive lymph node or a focus of metastatic disease. There is a moderate amount of stool seen within the colon. Please correlate with an underlying history of constipation. Incidental note is made of: Postoperative subcutaneous gas Accessory splenule Focal L5-S1 degenerative change Note: No significant discrepancy from the preliminary report. Dictated by: Perez Dennison M.D. on 03/14/2021 at 7:44 Approved by: Perez Dennison M.D. on 03/14/2021 at 7:49
[2021-03-14 04:26] LABS: Add Manual Diff / Slide Review NO; Basophils Absolute Auto 100 /uL (0-100); Basophils Percent Auto 2.7 % (0-2); Eosinophils Absolute Auto 200 /uL (0-450); Eosinophils Percent Auto 4.5 % (2-4); Hematocrit 32.4 % (36-46); Lymphocytes Absolute Auto 1900 /uL (1100-4500); Lymphocytes Percent Auto 38.2 % (25-40); Mean Corpuscular HGB Conc 33.9 % (30-36); Mean Corpuscular Hemoglobin 30.6 PG (26-34); Mean Corpuscular Volume 90.3 fL (80-100); Monocytes Absolute Auto 300 /uL (0-900); Monocytes Percent Auto 5.7 % (3-14); Neutrophils Absolute Auto 2500 /uL (1500-7000); Neutrophils Percent Auto 48.9 % (50-75); Platelet Count 320 X10^3/uL (150-400); Red Blood Cell Count 3.58 X10^6/uL (4.0-5.2); Red Cell Distribution Width 15.5 % (11.6-14.8)
[2021-03-14 04:31] LABS: Appearance Urine UA CLEAR; Bilirubin Urine UA NEGATIVE (NEGATIVE); Color Urine UA YELLOW; Glucose Urine UA TRACE g/dL (Negative); Ketones Urine UA NEGATIVE (NEGATIVE); Leukocyte Esterase Urine UA NEGATIVE (NEGATIVE); Nitrite Urine UA NEGATIVE (Negative); Occult Blood Urine UA TRACE-LYSED (Negative); Protein Urine UA TRACE (Negative); Specific Gravity Urine UA 1.015 (1.000-1.035); Urobilinogen Urine UA 0.2 E.U./dL (0.2); pH Urine UA 7.5 (4.5-8.0)
[2021-03-14 04:32] LABS: RBC Urine 1-5/HPF (0-5/HPF); WBC Urine 0-1/HPF (0-5/HPF)
[2021-03-14 04:33] LABS: Squamous Epithelial Cell Urine 0-1 /HPF (0-5/HPF)
[2021-03-14 04:34] LABS: Bacteria Urine Occasional (0-1); Culture Indicated Urine Cult Not Indicated
[2021-03-14 04:36] LABS: Alanine Aminotransferase 17 IU/L (<35); Albumin 3.2 g/dL (3.5-5.0); Albumin Globulin Ratio 1.3 (1.0-2.8); Alkaline Phosphatase 49 U/L (38-126); Aspartate Aminotransferase 33 IU/L (14-36); BUN Creatinine Ratio 16.7 (6-22); Bilirubin Total 0.3 mg/dL (0.2-1.3); Blood Urea Nitrogen 12 mg/dL (7-17); Calcium 8.4 mg/dL (8.4-10.2); Carbon Dioxide 29 mmol/L (22-32); Chloride 108 mmol/L (98-107); Estimated Glomerular Filt Rate > 60.0 mL/min (>60); Globulin 2.5 g/dL (1.7-4.1); Glucose 111 mg/dL (80-110); HEMOLYSIS < 15 (0-50); Potassium 3.9 mmol/L (3.4-5.1); Sodium 137 mmol/L (137-145); Total Protein 5.7 g/dL (6.3-8.2)
--- NOTE | 2021-03-14 04:45 | PC.NURSE ---
Cath flushed. No residual found. Le patent
[2021-03-14 05:41] VITALS: BP 123/57; PULSE 72; RESP 16; O2SAT 97
--- NOTE | 2021-03-30 10:27 | ONC.MSW ---
T/C-Referral Activity: Left a message with PCP that we have still not received this patient's urgent referral. 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
== END 2021-03-14 05:42 | disposition home or self-care (01) ==
PROVIDERS: Emergency Provider Emergency Medicine; PCP Family Medicine
DX: K59.00 Constipation, unspecified (principal)
CPT/HCPCS: 36415; 74177; 80053; 81001; 81003; 83605; 85025; 99283; 99284; Q9967

== ENCOUNTER → 2021-03-18 14:11 | Outpatient (CLI) | payer OTHER, SELFPAY | PROVIDERS: PCP Family Medicine; Visit Provider Specialist | DX: R30.0 Dysuria (principal); Z90.710 Acquired absence of both cervix and uterus | CPT/HCPCS: 87077; 87086; 87186 ==

== ENCOUNTER → 2021-10-26 08:12 | Outpatient (CLI) | payer OTHER, SELFPAY ==
--- NOTE | 2021-10-26 | DI.MG.S_ITS ---
BILATERAL DIGITAL SCREENING MAMMOGRAM 3D/2D WITH CAD: 10/26/2021 CLINICAL: Routine screening. Comparison is made to exams dated: 12/17/2019 mammogram, 12/14/2018 mammogram, and 12/01/2017 mammogram - [facility]. Both breasts are extremely dense, which lowers the sensitivity of mammography (category d />75% glandular tissue). Current study was also evaluated with a Computer Aided Detection (CAD) system. There is a possible asymmetry in the left breast at 10 o'clock middle depth. No other significant masses, calcifications, or other findings are seen in either breast. IMPRESSION: INCOMPLETE: NEEDS ADDITIONAL IMAGING EVALUATION The possible asymmetry in the left breast is indeterminate. Additional views with possible ultrasound are recommended. This exam was interpreted at Station ID: [id number]. NOTE: For mammograms, a report in lay terms will be sent to the patient. Approximately 15% of breast malignancies will not be visualized mammographically. In the management of a palpable breast mass, a negative mammogram must not discourage biopsy of a clinically suspicious lesion. Electronically Signed By: Perfecto Barboza M.D., jr/jorje:10/26/2021 08:54:36 letter sent: Additional Imaging Needed ACR BI-RADS Category 0: Incomplete [id number]
== END ==
PROVIDERS: PCP Family Medicine; Referring Provider Family Medicine; Visit Provider Family Medicine
DX: Z12.31 Encounter for screening mammogram for malignant neoplasm of breast (principal); R92.8 Other abnormal and inconclusive findings on diagnostic imaging of breast
CPT/HCPCS: 77063; 77067

== ENCOUNTER → 2021-11-09 08:35 | Outpatient (CLI) | payer OTHER, SELFPAY ==
--- NOTE | 2021-11-09 | DI.MG.S_ITS ---
UNILATERAL LEFT DIGITAL DIAGNOSTIC MAMMOGRAM 3D/2D WITH ADDITIONAL VIEWS: 11/09/2021 CLINICAL: Additional evaluation requested from prior study. Comparison is made to exams dated: 10/26/2021 mammogram, 12/17/2019 mammogram, 12/14/2018 mammogram, 12/16/2017 mammogram, 11/29/2016 mammogram, and 12/01/2017 mammogram - [facility]. The left breast is extremely dense, which lowers the sensitivity of mammography (category d />75% glandular tissue). There is a possible asymmetry in the left breast at 10 o'clock middle depth. This is not seen in additional views. No other significant masses or calcifications are seen in the breast. IMPRESSION: NEGATIVE There is no mammographic evidence of malignancy. The possible asymmetry in the left breast is consistent with fibroglandular tissue and is benign. A 1 year screening mammogram is recommended. Exam findings were conveyed to the patient. This exam was interpreted at Station ID: [id number]. NOTE: For mammograms, a report in lay terms will be sent to the patient. Approximately 15% of breast malignancies will not be visualized mammographically. In the management of a palpable breast mass, a negative mammogram must not discourage biopsy of a clinically suspicious lesion. Electronically Signed By: Cam Murry M.D. slc/:11/09/2021 09:08:15 letter sent: Normal Exam ACR BI-RADS Category 1: Negative [id number]
== END ==
PROVIDERS: PCP Family Medicine; Referring Provider Family Medicine; Visit Provider Family Medicine
DX: R92.8 Other abnormal and inconclusive findings on diagnostic imaging of breast (principal)
CPT/HCPCS: 77065; G0279

== ENCOUNTER → 2022-11-09 14:39 | Outpatient (CLI) | payer OTHER, SELFPAY ==
--- NOTE | 2022-11-09 14:42 | DI.MG.S_ITS ---
BILATERAL DIGITAL SCREENING MAMMOGRAM 3D/2D WITH CAD: 11/09/2022 CLINICAL: Routine screening. Comparison is made to exams dated: 11/09/2021 mammogram, 10/26/2021 mammogram, and 12/17/2019 mammogram - [facility]. Both breasts are heterogeneously dense, which may obscure small masses (category c / 51-75% glandular tissue). Current study was also evaluated with a Computer Aided Detection (CAD) system. No significant masses, calcifications, or other findings are seen in either breast. IMPRESSION: NEGATIVE There is no mammographic evidence of malignancy. A 1 year screening mammogram is recommended. Based on the Tyrer Cuzick model (a risk assessment model) the patient's lifetime risk is 11.0% and her 10 year risk is 4.9%. According to the ACR, ACS, and NCCN guidelines, an annual breast MRI exam along with mammogram is recommended if the patient's lifetime risk is 20% or greater. This exam was interpreted at Station ID: [id number]. NOTE: For mammograms, a report in lay terms will be sent to the patient. Approximately 15% of breast malignancies will not be visualized mammographically. In the management of a palpable breast mass, a negative mammogram must not discourage biopsy of a clinically suspicious lesion. Electronically Signed By: Anisa garcia/jorje:11/09/2022 17:36:51 letter sent: Normal Exam ACR BI-RADS Category 1: Negative [id number]
== END ==
PROVIDERS: PCP Family Medicine; Referring Provider Family Medicine; Visit Provider Family Medicine
DX: Z12.31 Encounter for screening mammogram for malignant neoplasm of breast (principal)
CPT/HCPCS: 77063; 77067

== ENCOUNTER → 2023-11-11 07:35 | Outpatient (CLI) | payer OTHER, SELFPAY ==
--- NOTE | 2023-11-11 07:36 | DI.MG.S_ITS ---
BILATERAL DIGITAL SCREENING MAMMOGRAM 3D/2D WITH CAD: 11/11/2023 CLINICAL: Routine screening. Comparison is made to exams dated: 11/09/2022 mammogram, 10/26/2021 mammogram, and 12/17/2019 mammogram - [facility]. The breasts are heterogeneously dense, which may obscure small masses (category c / 51-75% glandular tissue). Current study was also evaluated with a Computer Aided Detection (CAD) system. No significant masses, calcifications, or other findings are seen in either breast. There has been no significant interval change. IMPRESSION: NEGATIVE There is no mammographic evidence of malignancy. A 1 year screening mammogram is recommended. Based on the Tyrer Cuzick model (a risk assessment model) the patient's lifetime risk is 10.6% and her 10 year risk is 4.9%. According to the ACR, ACS, and NCCN guidelines, an annual breast MRI exam along with mammogram is recommended if the patient's lifetime risk is 20% or greater. This exam was interpreted at Station ID: [id number]. NOTE: For mammograms, a report in lay terms will be sent to the patient. Approximately 15% of breast malignancies will not be visualized mammographically. In the management of a palpable breast mass, a negative mammogram must not discourage biopsy of a clinically suspicious lesion. Electronically Signed By: Dario yanez/jorje:11/11/2023 08:55:57 letter sent: Normal Exam ACR BI-RADS Category 1: Negative
== END ==
PROVIDERS: PCP Family Medicine; Referring Provider Family Medicine; Visit Provider Family Medicine
DX: Z12.31 Encounter for screening mammogram for malignant neoplasm of breast (principal); R92.333 Mammographic heterogeneous density, bilateral breasts
CPT/HCPCS: 77063; 77067

== ENCOUNTER → 2024-01-24 08:44 | Outpatient (CLI) | payer OTHER, SELFPAY ==
--- NOTE | 2024-01-24 08:45 | DI.MRI.S_ITS ---
PROCEDURE: MR CERVICAL SPINE WO CON INDICATIONS: RADICULOPATHY,CERVICAL REGION TECHNIQUE: Noncontrast sagittal T1 spin echo and T2 fast spin echo, sagittal STIR, foraminal oblique sagittal T2 fast spin echo, and axial gradient echo or T2 fast spin echo through the cervical spine. COMPARISON: [facility], , C-SPINE WITHOUT CONTRAST, 02/27/2016, 9:10. FINDINGS: Image quality: Excellent. Alignment and Curvature: Remote mature interbody fusion involving C4 through C6 with ACDF at C6-C7. Trace anterolisthesis of C3 on C4, slightly increased. Bone Marrow: Marrow demonstrates normal overall signal. Spinal Cord: Visualized spinal cord has normal size and signal. No cerebellar tonsillar herniation. Paraspinous Soft Tissues: No paravertebral masses. Prevertebral soft tissues are normal in thickness. C2-C3: No canal stenosis or foraminal stenosis. C3-C4: Interval increase in disc height loss and increase in trace anterolisthesis. Borderline canal stenosis. AP diameter of the central canal is 10.0 mm. Reference axial image 19 of series 4. Bilateral uncovertebral joint hypertrophy, left greater than right. Mild right foraminal narrowing. Moderate to severe left foraminal narrowing with a degree of left foraminal C4 nerve root impingement. C4-C5: Fused. No canal stenosis or foraminal stenosis. C5-C6: Fused. No canal stenosis or foraminal stenosis. C6-C7: Fused. No canal stenosis. Prominent bilateral uncovertebral joint hypertrophy. Moderate right foraminal narrowing. Moderate to severe left foraminal narrowing. There is a mild degree of bilateral foraminal C7 nerve root impingement. C7-T1: No canal stenosis or foraminal stenosis. IMPRESSION: 1. Extensive remote fusion from C4 through C7. 2. Progressive findings at C3-C4. There is in increased disc height loss and increase in trace anterolisthesis. There is development of borderline canal stenosis. There is worsening of left foraminal narrowing, now moderate to severe, with left C4 nerve root impingement. 3. At C6-C7, there is moderate right foraminal narrowing and moderate to severe left foraminal narrowing. Dictated by: Trung Bullard M.D. on 01/24/2024 at 11:20 Approved by: Trung Bullard M.D. on 01/24/2024 at 11:28
== END ==
PROVIDERS: PCP Family Medicine; Referring Provider Physical Medicine & Rehabilitation; Visit Provider Physical Medicine & Rehabilitation
DX: M54.12 Radiculopathy, cervical region (principal); M48.02 Spinal stenosis, cervical region; Z98.1 Arthrodesis status
CPT/HCPCS: 72141

== ENCOUNTER → 2024-07-27 07:00 | Outpatient (CLI) | payer OTHER, SELFPAY ==
--- NOTE | 2024-07-27 07:34 | EKG_ITS ---
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
[2024-07-27 07:35] LABS: Appearance Urine UA CLEAR; Bilirubin Urine UA NEGATIVE (NEGATIVE); Color Urine UA YELLOW; Glucose Urine UA NEGATIVE (Negative); Ketones Urine UA NEGATIVE (NEGATIVE); Leukocyte Esterase Urine UA NEGATIVE (NEGATIVE); Nitrite Urine UA NEGATIVE (Negative); Occult Blood Urine UA NEGATIVE (Negative); Protein Urine UA NEGATIVE (Negative); Urobilinogen Urine UA 0.2 E.U./dL (0.2)
[2024-07-27 07:36] LABS: Urine Volume 10mL (spun); pH Urine UA 6.5 (4.5-8.0)
[2024-07-27 07:37] LABS: Bacteria Urine None Seen; RBC Urine None Seen (0-5/HPF); Squamous Epithelial Cell Urine None Seen (0-5/HPF); WBC Urine None Seen (0-5/HPF)
[2024-07-27 07:38] LABS: Add Manual Diff / Slide Review NO; Basophils Absolute Auto 100 /uL (0-100); Basophils Percent Auto 2.3 % (0-2); Culture Indicated Urine Cult Not Indicated; Eosinophils Absolute Auto 100 /uL (0-450); Eosinophils Percent Auto 2.5 % (2-4); Hemoglobin 13.7 g/dL (12.0-16.0); Lymphocytes Absolute Auto 1500 /uL (1100-4500); Lymphocytes Percent Auto 37.4 % (25-40); Mean Corpuscular HGB Conc 33.5 % (30-36); Mean Corpuscular Hemoglobin 32.3 PG (26-34); Mean Corpuscular Volume 96.5 fL (80-100); Monocytes Absolute Auto 300 /uL (0-900); Monocytes Percent Auto 7.9 % (3-14); Neutrophils Absolute Auto 2000 /uL (1500-7000); Neutrophils Percent Auto 49.9 % (50-75); Platelet Count 332 X10^3/uL (150-400); Red Blood Cell Count 4.25 X10^6/uL (4.0-5.2); Red Cell Distribution Width 12.8 % (11.6-14.8)
[2024-07-27 08:06] LABS: BUN Creatinine Ratio 29.5 (6-22); Blood Urea Nitrogen 23 mg/dL (7-17); Calcium 9.4 mg/dL (8.4-10.2); Carbon Dioxide 27 mmol/L (22-32); Chloride 102 mmol/L (98-107); Estimated Glomerular Filt Rate > 60 mL/min (>60); Glucose 101 mg/dL (70-99); HEMOLYSIS < 15 (0-50); Potassium 4.4 mmol/L (3.4-5.1); Sodium 137 mmol/L (137-145)
[2024-07-27 08:17] LABS: Hemoglobin A1C% w Est Avg Glu 5.5 % (4.0-6.0)
== END ==
PROVIDERS: PCP Family Medicine; Referring Provider Orthopaedic Surgery; Visit Provider Orthopaedic Surgery
DX: Z01.818 Encounter for other preprocedural examination (principal); N39.0 Urinary tract infection, site not specified; R73.9 Hyperglycemia, unspecified; Z01.812 Encounter for preprocedural laboratory examination
CPT/HCPCS: 36415; 80048; 81001; 83036; 85025; 93005; 93010

== ENCOUNTER 2024-09-05 06:05 | Day surgery (SDC) | payer OTHER, SELFPAY ==
[2024-08-28 09:48] VITALS: BMI 19.6
[2024-09-05] VITALS (16 sets, daily range): BP systolic 93–136; BP diastolic 53–78; PULSE 50–76; RESP 11–20; TEMP 36.2–36.9; O2SAT 96–100; BMI 19.6; BMI 20.4
--- NOTE | 2024-09-05 | DI.RAD.S_ITS ---
PROCEDURE: XR HIP W PEL IF DONE RT 2V INDICATIONS: INTRA OP RIGHT HIP TECHNIQUE: AP pelvis with lateral view(s) of the right hip(s). COMPARISON: None. FINDINGS: Bones: There are no osseous abnormalities. SI and hip joints: Digital intraoperative images show right total hip prosthesis in anatomic alignment. Older left total hip prostheses also anatomically aligned. Soft tissues: No soft tissue swelling, calcification or mass. IMPRESSION: Right total hip prostheses anatomic alignment Dictated by: Harry Patel M.D. on 09/06/2024 at 11:49 Approved by: Harry Patel M.D. on 09/06/2024 at 11:49
--- NOTE | 2024-09-05 06:00 | DI.RAD.S_ITS ---
PROCEDURE: XR HIP W PEL IF DONE RT 2V INDICATIONS: STEFANIE TECHNIQUE: AP pelvis and lateral view of the hip acquired. COMPARISON: [facility], CR, XR HIP W PEL RT 2V, 09/05/2024, 9:09. FINDINGS: Bones: Patient is status post right hip arthroplasty, with hardware components in expected positions. The hip joint appears congruent. The visualized bony structures appear intact. Soft tissues: Overlying postoperative changes are noted. No suspicious soft tissue densities. IMPRESSION: Expected post-operative appearance of a hip arthroplasty. Dictated by: Franco Lyle M.D. on 09/05/2024 at 10:50 Approved by: Franco Lyle M.D. on 09/05/2024 at 10:50
[2024-09-05] MEDS: CELECOXIB 200 MG CAPSULE PO (06:50)
[2024-09-05] MEDS: ACETAMINOPHEN 325 MG TABLET 975 MG PO (06:51)
[2024-09-05] MEDS: LACTATED RINGERS 1,000 ML 42 ML IV ×2 (06:51→11:32)
[2024-09-05] MEDS: VANCOMYCIN 1,000 MG in SODIUM CHLORIDE 0.9% 250 ML 250 MG IV (07:21)
--- NOTE | 2024-09-05 07:37 | PM.PREOP ---
Pre-operative Note Interval Note History & Physical reviewed/Exam performed by Physician: Yes Changes to H&P: No
--- NOTE | 2024-09-05 07:37 | PM.OP.1 ---
Operative Date/Time/Diagnoses Date of procedure: 09/05/24 Time of procedure: 07:45 Pre-op diagnosis: right hip OA Post-op diagnosis: same Procedure & Clinicians Procedure: right total hip arthroplasty anterior approach Same procedure(s) as scheduled: Yes Indications: The patient has had progressively worsening right hip pain with radiographic changes consistent with arthritis. Non-operative management has failed and the patient has requested total hip replacement. The risks, benefits and alternatives to surgery were discussed with the patient prior to proceeding. Risks discussed included, but were not limited to, failure to relieve pain, leg length discrepancy, dislocation, stiffness, infection, nerve damage, deep venous thrombosis, pulmonary embolism, stroke, coma, heart attack, permanent paralysis and , as well as the potential need for eventual revision of the prosthetic. Surgeon: Gretta Ramirez Beam House Inspector: Unruly Segundo Anesthesia Type: Spinal Operative Notes Findings: severe right hip OA, adequate bone, adequate stability Closure Type: primary Specimen(s): none sent Prosthetic devices, grafts, tissues, transplants, or devices: [employer] R3 size 50, neutral poly liner,one 6.5 mm screw, polar stem size 1 standard offset, 36 x -3 cobalt chrome head Applied: none Estimated Blood Loss (mL): 250 Blood products transfused: none Procedure in detail: The patient was brought to the operating room. Patient was carefully positioned in the supine position. Time-out was performed and antibiotics were given. Anesthesia was induced. She was positioned in the on the table in order to allow hyperextension of the hip. The Right lower extremity was prepped and draped in a standard sterile fashion. An anterior right hip incision was made 1 fingerbreadth lateral to the anterior superior iliac spine and extended distally towards the greater trochanter. Dissection was carried out through skin and subcutaneous tissues. Superficial hemostasis was achieved. The fascia over the tensor fascia emerson was defined and incised with a knife. Two Allis clamps were used to grasp the fascia. Tensor fascia emerson was retracted laterally. A gelpi retractor was placed. Dissection was carried out down along the neck. The circumflex vessels were carefully identified and cauterized with the Aqua Mantis. A PA was used during the procedure and was essential for intraoperative retraction and safe implantation of the components. There was good visualization of the femoral neck. A Cobra was placed superior to the neck and the gluteus fibers were carefully stripped from that superior aspect of the capsule. A 2nd retractor was placed along the inferior aspect of the neck. The rectus insertion along the capsule was partially released. A 3rd retractor that was then gently placed over the rim of the acetabulum under the rectus. Capsule was carefully incised and released from the intertrochanteric line circumferentially superior to the mid sagittal line and inferiorly to the mid sagittal line until the lesser trochanter was palpable. A tag stitch was placed both in the superior and inferior limb of the capsular insertion. Along the acetabulum capsule was also released up to the mid sagittal 12:00 position. A portion of the labrum was resected. A saw was used to perform an osteotomy at the level of the intertrochanteric line and the junction of the superior femoral neck leaving approximately 1 finger breath of residual inferior neck above the lesser trochanter. A 2nd cut was made along the femoral neck at the base of the head and a napkin ring of neck was removed. Corkscrew was placed in the femoral head and the head was removed without difficulty. Retractors were then repositioned around the acetabulum. Residual labrum was resected and additional osteophytes were removed. A reamer that was 4 mm below the templated size was placed by hand in the acetabulum and it was reamed to centralize the acetabulum. It was then reamed up to 2 under the templated size and fluoroscopy was brought in to confirm the position of the reaming and depth of reaming. I reamed 1 under the anticipated size. A trial cup was placed and noted that it was appropriately sized and fluoroscopy confirmed position and depth. The component was open and inserted without difficulty fluoroscopic imaging was used to confirm that the cup had been adequately seated and was well positioned. It was further stabilized with a single screw. Neutral poly liner was placed. The cup was tested and noted to be stable. Attention was then directed to the femur. The femur was gently hyperextended additional capsular release was performed as needed in order to allow adequate visualization of the proximal femur with elevation of the femur. Patient was placed in a hyperextended slightly adducted position with maximum external rotation. Box osteotome was used to check for any residual neck as well as sclerotic bone along the trochanter. [place] pepper was placed in the femur. Additional broaching was performed. Canal finder was used to determine the alignment of the canal and position. Size 1 broach was placed. The canal was then appropriately broached up to the templated size as long as there was adequate stability of the broach and serial advancement of the broach without excessive impingement. Specific attention was directed at avoiding varus attempting to direct the distal aspect of the broach more anteriorly and avoiding excessive anteversion. Trial reduction showed acceptable range of motion, good stability, no posterior impingement, lutheran of leg length and appropriate lateral shuck. I also hyperflexed the hip and checked that there was no impingement anteriorly and there was good stability with flexion, adduction and internal rotation. Marcaine and Exparel were injected. The stem was placed without difficulty. Repeat trial reduction and x-ray showed acceptable overall position, length, and no evidence of the femoral fracture. Final head was placed. Wound was meticulously irrigated with normal saline. The hip was reduced and additional Exparel and Marcaine were injected. The capsule was closed with interrupted nonabsorbable sutures. The fascia of the tensor was closed with interrupted and running Vicryl. No drain was placed. Any tensor fascia emerson muscle that appeared to be contused or injured which was a minimal amount was carefully resected. Capsule around the tensor was injected with Exparel and Marcaine. The skin was closed with barbed stitches for the subcutaneous tissue and skin. We also used surgical glue. The wound was dressed sterilely. Brief Betadine soak was also used and was meticulously irrigated with normal saline. Patient was transferred to recovery room in satisfactory condition. Complications: none Post-operative Condition: stable Disposition: same day surgery Plan for aftercare: The patient will be maintained on a standard total hip replacement protocol with weight bearing as tolerated and anterior hip precautions. The patient will receive Aspirin and sequential compression devices for DVT prophylaxis. The patient will be discharged home when safe for the home environment.
[2024-09-05] MEDS: CEFAZOLIN 2 GM/100 ML PREMIX 100 ML IV ×3 (08:12→23:53)
--- NOTE | 2024-09-05 08:38 | SUR.OPER ---
Supine on padded [place] table with bilateral legs secured in padded positioning boots and suspended in positioning spars, operative leg in traction per surgeon. Head on one pillow. Arm on non-operative side secured on padded armboard <90 degrees abduction. Arm on operative side padded and resting across chest then secured with tape over sheet. Padded perineal post in place per surgeon.
[2024-09-05] MEDS: BUPIVACAINE LIPOSOME 266 MG/20 ML VIAL INJ (08:43)
[2024-09-05] MEDS: TRANEXAMIC ACID 1,000 MG VIAL 1000 MG INJ ×2 (08:43→09:52)
[2024-09-05] MEDS: BUPIVACAINE 0.25% W/ EPI 30 ML VIAL 60 ML INJ (08:44)
[2024-09-05] MEDS: OXYCODONE IR 5 MG TABLET PO ×4 (10:49→23:54)
[2024-09-05] MEDS: HYDROMORPHONE 1 MG INJ IV ×2 (11:04→11:21)
--- NOTE | 2024-09-05 11:49 | SUR.PREOP ---
Transferring pt to room 202 with one belongings bag
--- NOTE | 2024-09-05 12:31 | PC.NURSE ---
Pt to room 202 via bed from PACU. Pt is awake but sleepy and is oriented. Denies nausea or shortness of breath. States pain is 4-5/10 but received pain meds just prior to coming up from the OR. Pt is able to wiggle toes but is not able to lift her right leg yet. Ice pack to right hip. SCD's on and running. IV infusing as ordered. Bed alarm on for safety. Pt agrees to call for assistance as needed and to not get up without help. Pt oriented to room, call light, bed controls and tv controls.
[2024-09-05] MEDS: ACETAMINOPHEN 325 MG TABLET 650 MG PO (14:12)
--- NOTE | 2024-09-05 15:19 | OT.IPNOTE ---
Pt states still numb and not able to lift her leg up yet. Pt also states right hand swollen and notified nurse to double check on the IV site. To check on the pt tomorrow for OT.
[2024-09-05] MEDS: IBUPROFEN 400 MG TABLET PO (15:21)
--- NOTE | 2024-09-05 16:45 | PT.IIE ---
Current Diagnoses Unilateral primary osteoarthritis, right hip (09/05/24) Surgery Performed Operation Date: 09/05/24 07:45 Actual Procedures p Total Hip Arthroplasty/Anterior Approach(Right) - Gretta Ramirez MD Surgical History (Last Updated 08/28/24 @ 10:19 by Ally Phelps, RN) H/O: hysterectomy (2021) History of carpal tunnel release History of cervical spinal surgery (02/2020) History of colonoscopy (2021) History of hip replacement History of spinal fusion (2016) History of total left hip replacement (2009) S/P cervical spinal fusion (2010) Medical History (Last Updated 08/28/24 @ 10:15 by Ally Phelps RN) Endometrial cancer (2021) Fibromyalgia Hemiplegic migraine History of transfusion (2021) Iron deficiency Meningioma Multiple sclerosis (2004) Osteoarthritis Stenosis, cervical spine Vaginal atrophy (~06/2020) Vitamin D deficiency Physical Therapy Inpatient Evaluation/Re-Eval M1 PT/OT-IP Prior Functional Status Start: 09/05/24 17:52 Freq: NEEDED Status: Active Protocol: Document 09/05/24 16:45 AB (Rec: 09/05/24 18:04 AB [id number]) Medical Review Prior Functional Status Medical History Yes Reviewed Communication able to make needs known Mobility and Gait pt stated that she was independent with all mobilities and ambulation without AD; stated that she is very active taking care of her animals and still riding horses Social History Household Members spouse Living Arrangements House Number of Floors ( One Floor Floors) Number of Stairs To 17 steps R rail ascending to enter the house Enter/Railing? Home Environment Standard Height Toilet,Walk in Shower Home Equipment Four Wheel Walker,Straight Cane,Crutches,Raised Toilet Seat w/Armrests,Shower Seat without Backrest,Hand Held Shower Additional Social pt has an adjustable bed History Comment M2 PT-IP Current Condition Start: 09/05/24 17:52 Freq: NEEDED Status: Active Protocol: Document 09/05/24 16:45 AB (Rec: 09/05/24 18:04 AB [id number]) Physical Therapy Current Condition Current Condition Evaluation Date 09/05/24 Treatment Diagnosis s/p R STEFANIE anterior; difficulty in walking Onset Date 09/05/24 M3 PT-IP Subjective Start: 07/30/25 17:52 Freq: NEEDED Status: Active Protocol: Document 09/05/24 16:45 AB (Rec: 09/05/24 18:04 AB [id number]) Therapy Pain Assessment Pain When Pain Assessed At Rest Pain Present Pain Present Pain Reported Location Right Hip Intensity 5 Scale Used Numeric (0 - 10) M4 PT-IP Mobility and Gait Start: 09/05/24 17:52 Freq: NEEDED Status: Active Protocol: Document 09/05/24 16:45 AB (Rec: 09/05/24 18:04 [id number]) PT-Bed Mobility Assessment Supine to Sit Supine to Sit Standby Assistance PT-Transfer Assessment Sit to and From Stand Sit to and from 1 Person Assistance,Use of Upper Extremities Stand Equipment Transfer Assistive Gait Belt,Front Wheeled Walker Device Orthotic/Prosthetic No Devices or Brace: Transfers Transfer Destination Chair Transfer Technique ambulated Transfer Ability Level of Assist Contact Guard Assistance,Minimal Assistance,1 Person Assistance,Use of Upper Extremities Comments Mobility Comments pt in bed and agreeable to do PT. obtained PLOF and home set up. post-op folder provided to pt. educated on anterior hip precautions. BP: 112/68. O2 sat 97% and GA: 70 pt completed supine to sit SBA and cues for techniques . able to sit on EOB SBA. no c/o dizziness/ lightheadedness. sit to stand CGA and cues and ambulated ~ 20 ft to the chair using FWW CGA to min A and cues for safety. pt agreed to stay up on the chair . positioned pt on the chair. call light and table within reach. set up pt for dinner. Gait Assessment Gait Gait Assistance Contact Guard Assist,Minimum Assistance Required: Distance (Feet) 20 Able to Maintain Yes Weight Bearing Status During Gait Assistive Devices Assistive Device Gait Belt Orthotic/Prosthetic No Devices or Brace: Gait Deviations General Gait Pattern Antalgic,Decreased Stride Length,Decreased Feet Clearance,Step-to Gait Factors Limiting Gait Function Factors Limiting Decreased Activity Tolerance,Decreased Sensation, Gait Function Decreased Strength,Limited Range of Motion,Pain,Poor Balance,Poor Safety Awareness PT-Balance Assessment Sitting Balance and Reactions Static Sitting Normal Balance Ability Dynamic Sitting Good Balance Ability Standing Balance and Reactions Static Standing Fair Balance Ability Dynamic Standing Fair Balance Ability Device Used FWW M5 PT-IP Objective Assessments Start: 09/05/24 17:52 Freq: NEEDED Status: Active Protocol: Document 09/05/24 16:45 AB (Rec: 09/05/24 18:04 AB [id number]) Orientation Orientation/Cognition Level of Alertness Alert Orientation Name,Place,Situation Language Function Hard of Hearing Ability Safety Awareness Decreased Safety Awareness Memory Description Short Term Impaired Strength Lower Extremity Strength Assessment Right Impaired Hip 3-/5 Knee 3+/5 Sensation Assessment Sensation Sensation Numbness Description Comments Sensation Comments c/o buttocks numbness Muscle Tone Muscle Tone WNL Yes M6 PT-IP Treatment Start: 09/05/24 17:52 Freq: NEEDED Status: Active Protocol: Document 09/05/24 16:45 AB (Rec: 09/05/24 18:04 AB [id number]) Physical Therapy Treatment Exercises Exercises Heel Slides Education Education Provided Precautions,Weight Bearing Status,Post-Op Packet,Safety M7 PT-IP Assessment and Plan Start: 09/05/24 17:52 Freq: NEEDED Status: Active Protocol: Document 09/05/24 16:45 AB (Rec: 09/05/24 18:04 [id number]) PT Summary Assessment and Plan Potential Rehabilitation Good Potential Status of Condition Evolving at Evaluation Summary Impairments Pain,ROM,Strength,Balance,Coordination,Sensation,Tone, Cognition,Bed Mobility,Transfers,Gait,Activity Tolerance Assessment Summary pt is a 64 y/o F s/p R STEFANIE anterior approach POD 0. pt with R hip anterior precautions and is WBAT. pt requiring SBA for supine to sit, CGA to min A for ambulation using FWW. pt plans to go home with spouse to assist. pt has 17 steps with R rail ascending to enter the house. Will complete caregiver training and stair training when appropriate. Goals Bed Mobility Goal Independent Transfer Goal Independent,Four Wheeled Walker Gait Goal Independent,Four Wheel Walker Gait Distance 200 Other Goals up/down 17 steps R rail ascending SBA Days to Meet Goals 5 Frequency of Treatment Frequency Of Twice a Day Treatment Treatment Plan Physical Therapy Bed Mobility Training,Transfer Training,Gait Training, Treatment Plan Therapeutic Exercise,Balance Retraining,Post Op Education,Discharge Planning,Hot or Cold Pack, Neuromuscular Re-ed,Coordination Retraining,Manual Therapy Other ambulation using 4WW; caregiver training when Recommendations and appropriate Next Treatment Focus Precautions Anterior Hip No Hip Extension,No Hip External Rotation Precautions Weight Bearing Status Weight Bearing Weight Bear as Tolerated Status Allowed Weight RLE: WBAT Bearing Amount ( enter % or #) (%) Recommendations To Nursing Amount of Assist 1 Person Assist Needed Discharge Recommendations PT Discharge Home with Assistance,Outpatient PT Recommendations Equipment Needed for FWW if not safe with 4WW Home Before Discharge Transportation Needs Private Vehicle at Discharge - PT assist 1
[2024-09-05] MEDS: ONDANSETRON 4 MG/2 ML INJ IV (19:23)
[2024-09-06] MEDS: OXYCODONE IR 5 MG TABLET PO ×2 (04:23→08:02)
[2024-09-06 06:02] LABS: Hematocrit 31.8 % (36-46); Hemoglobin 10.9 g/dL (12.0-16.0)
[2024-09-06] MEDS: DOCUSATE 100 MG CAPSULE PO ×2 (08:01)
[2024-09-06] MEDS: ASPIRIN EC 81 MG TABLET PO ×2 (08:01)
[2024-09-06] MEDS: ACETAMINOPHEN 325 MG TABLET 650 MG PO (08:04)
--- NOTE | 2024-09-06 08:36 | PM.DS.1 ---
History of Present Illness History of Present Illness Date Patient Seen: 09/06/24 Time Patient Seen: 08:37 Chief complaint: Right Total Hip Arthroplasty/Anterior Approach Narrative: She has a severe right hip osteoarthritis and brought to the operating room for right total hip arthroplasty. She tolerated the procedure well. Discharge Providers Provider Discharge Date: 09/06/24 Primary care physician: Yaz Ordaz MD Consults: 09/05/24 06:00 Consult to Anesthesiology Routine Comment: Consulting Provider: Anesthesiologist Reason for consultation: Regional block for post operative pain control Has provider been notified: No 09/05/24 11:47 Consult to Discharge Planning Routine Comment: Consult to Occupational Therapy Evaluate & Treat Comment: Physician Instructions: Evaluate and treat Consult to Physical Therapy Evaluate & Treat Comment: Physician Instructions: post op STEFANIE protocol Discharge provider: Gretta Ramirez MD Summary Hospital Course Discharge Diagnosis: Right hip OA, right total hip arthroplasty, metastatic cancer Hospital Course: She underwent a right total hip arthroplasty. She tolerated the procedure well. She does have multiple medical problems and required overnight admission but did well with physical therapy and was stable for discharge. Status at Discharge Cognitive/behavioral status at discharge: oriented Functional status at discharge: uses cane/walker Overall status at discharge: patient is progressing back to baseline Exam Vital Signs (past 8 hours): Oxygen Delivery Method Room Air Oxygen Flow Rate 0 Narrative Exam Narrative: Resting in bed, dressing is dry, calves are soft bilaterally, she can fire her quad and hip flexor with slight pain, no pain with range of motion in her hip Objective Labs 09/06/24 05:28 Labs: Laboratory Results - last 24 hr 09/06/24 05:28 Hgb 10.9 L Hct 31.8 L PFSH Medical History (Updated 08/28/24 @ 10:15 by Ally Phelps RN) Endometrial cancer (2021) History of transfusion (2021) Iron deficiency Osteoarthritis Fibromyalgia Meningioma Vitamin D deficiency Hemiplegic migraine Vaginal atrophy (~06/2020) Multiple sclerosis (2004) Stenosis, cervical spine Surgical History (Updated 08/28/24 @ 10:19 by Ally Phelps RN) S/P cervical spinal fusion (2010) H/O: hysterectomy (2021) History of colonoscopy (2021) History of total left hip replacement (2009) History of carpal tunnel release History of cervical spinal surgery (02/2020) History of spinal fusion (2017) History of hip replacement Family History Father Cancer Heart disease Mother Diabetes mellitus Heart disease Hypertension High cholesterol Stroke Social History household members: spouse Smoking Status: Never smoker alcohol intake: current Discharge Assessment & Plan Assessment and Plan Assessment: Doing well postoperatively. Plan of Treatment: She was going to practice stairs with physical therapy and then just be discharged to home. She will keep her follow up in 2 weeks. Discharge Plan Discharge Plan Patient Disposition: Home Discharge orders & Medications Discharge Orders: Discharge (Order); Ordered 09/06/24 Ordered By: Gretta Ramirez Prescriptions: New acetaminophen 325 mg Tablet 650 mg PO Q6H Qty: 90 0RF aspirin 81 mg Tablet,Delayed Release (Dr/Ec) 81 mg PO BID Qty: 90 0RF polyethylene glycol 3350 17 gram Powder In Packet 17 g PO DAILY PRN (Reason: Constipation) Qty: 14 0RF ibuprofen 400 mg Tablet 400 mg PO Q4H PRN (Reason: Pain, Mild (1-3)) Qty: 90 0RF oxycodone 5 mg Tablet 5 mg PO Q3H PRN (Reason: Pain, Moderate (4-6)) Qty: 30 0RF Follow up/Referrals: Yaz Ordaz MD [Primary Care Provider, Family Practice] Diet/Activity/Treatments Diet: Diet as Tolerated Activity: Ambulate multiple times a day. Use a walker or cane as needed. Avoid falls. Cold/Heat Therapy: Put ice on the leg multiple times a day. Other treatments: Use low-dose aspirin 81 mg twice a day to prevent blood clot Skin/Wound/Dressing Care Skin care: Okay to shower. Report to your healthcare provider any signs of infection, such as:: chills, fever, night sweats, increased pain, unusual drainage and unusual redness Dressing: Leave dressing on. Visit Report/Discharge Packet Instructions: DI for Hip Replacement, DI for Prescription Opioid Use Stand Alone Forms: Patient Portal/API Print Language: Telugu Discharge Data Primary Care Provider: Yaz Ordaz Attending Provider: Gretta Ramirez
[2024-09-06 08:49] VITALS: BP 108/77; PULSE 68; RESP 14; TEMP 36.9; O2SAT 96
--- NOTE | 2024-09-06 09:10 | OT.IP.EVAL ---
Current Diagnoses Unilateral primary osteoarthritis, right hip (09/05/24) Surgery Performed Operation Date: 09/05/24 07:45 Actual Procedures p Total Hip Arthroplasty/Anterior Approach(Right) - Gretta Ramirez MD Past Medical History (Last Updated 08/28/24 @ 10:15 by Ally Phelps, RN) Endometrial cancer (2021) Fibromyalgia Hemiplegic migraine History of transfusion (2021) Iron deficiency Meningioma Multiple sclerosis (2004) Osteoarthritis Stenosis, cervical spine Vaginal atrophy (~06/2020) Vitamin D deficiency Surgical History (Last Updated 08/28/24 @ 10:19 by Ally Phelps RN) H/O: hysterectomy (2021) History of carpal tunnel release History of cervical spinal surgery (02/2020) History of colonoscopy (2021) History of hip replacement History of spinal fusion (2016) History of total left hip replacement (2009) S/P cervical spinal fusion (2010) Occupational Therapy Inpatient Evaluation/Re-Eval M1 PT/OT-IP Prior Functional Status Start: 09/05/24 17:52 Freq: NEEDED Status: Discharge Protocol: Document 09/06/24 09:13 MB (Rec: 09/06/24 09:33 MB Desktop) Medical Review Prior Functional Status Medical History Yes Reviewed Communication able to make needs known Mobility and Gait pt stated that she was independent with all mobilities and ambulation without AD; stated that she is very active taking care of her animals and still riding horses Social History Household Members spouse Living Arrangements House Number of Floors ( One Floor Floors) Number of Stairs To 17 steps R rail ascending to enter the house Enter/Railing? Home Environment Standard Height Toilet,Walk in Shower Home Equipment Four Wheel Walker,Straight Cane,Crutches,Raised Toilet Seat w/Armrests,Shower Seat without Backrest,Hand Held Shower Additional Social pt has an adjustable bed History Comment M1 PT/OT-IP Prior Functional Status Start: 09/06/24 10:33 Freq: NEEDED Status: Active Protocol: Document 09/06/24 10:34 [facility] (Rec: 09/06/24 10:49 [facility] Desktop) Medical Review Prior Functional Status Medical History Yes Reviewed Communication able to make needs known Mobility and Gait pt stated that she was independent with all mobilities and ambulation without AD; stated that she is very active taking care of her animals and still riding horses Activities of Daily Completed independent but needing increased time and Living and IADL's pain for ADL and mobility needs. Social History Household Members spouse Living Arrangements House Number of Floors ( One Floor Floors) Number of Stairs To 17 steps R rail ascending to enter the house Enter/Railing? Home Environment Standard Height Toilet,Walk in Shower Home Equipment Four Wheel Walker,Straight Cane,Crutches,Raised Toilet Seat w/Armrests,Shower Seat without Backrest,Hand Held Shower,Oil Well Services Dispatcher Additional Social pt has an adjustable bed History Comment M2 OT-IP Current Condition Start: 09/06/24 10:33 Freq: Status: Active Protocol: Document 09/06/24 10:34 [facility] (Rec: 09/06/24 10:49 [facility] Desktop) Occupational Therapy Current Condition Current Condition Evaluation Date 09/06/24 Treatment Diagnosis S/P R STEFANIE Anterior Diagnosis Onset Date 09/05/24 Post Operative Precautions Other Precautions NO hyperextension right hip Weight Bearing Status Weight Bearing Weight Bear as Tolerated Status M3 OT- IP Subjective and Pain Start: 09/06/24 10:33 Freq: Status: Active Protocol: Document 09/06/24 10:34 [facility] (Rec: 09/06/24 10:49 [facility] Desktop) OT- Subjective Occupational Therapy Visit Type Type Initial Evaluation Visit Start Time 08:45 Visit Stop Time 09:10 Occupational Therapy Visit Comments Patient Comments Pt agreed to get up and get dressed. Patient/Caregiver To go home. Goals OT Pain Assessment Pain When Pain Assessed During Mobility Pain Present Pain Present Pain Reported Location Right Hip Intensity 3 Scale Used Numeric (0 - 10) M4 OT- IP ADL's Start: 09/06/24 10:33 Freq: Status: Active Protocol: Document 09/06/24 10:34 [facility] (Rec: 09/06/24 10:49 [facility] Desktop) OT HEZ-Ktvy-Bosbgcy General Evaluation Self-Feeding Ability Independent OT ADL-Grooming General Evaluation Grooming Ability Independent OT ADL-Oral Care General Eval Oral Care Ability Independent OT ADL-Dressing General Eval Upper Body Dressing Independent Ability Lower Body Dressing Minimal Assistance Ability Areas Needing Shoes Assistance Comments OT Dressing Comments Able to use LB dressing equipment for socks. OT ADL-Toileting General Evaluation Toileting Ability Standby Assistance M5 OT- IP IADL's Start: 09/06/24 10:33 Freq: Status: Active Protocol: Document 09/06/24 10:34 [facility] (Rec: 09/06/24 10:49 [facility] Desktop) OT-Instrumental Activities of Daily Living Home Safety Awareness Awareness of Need Good Awareness for Assistance at Home Ability to Problem Able to Problem Solve Solve Emergency Situations Medication Management Medication No Deficits Identified Management Money Management Money Management No Deficits Identified Meal Preparation Meal Preparation Caregiver Provides Assist Software Validation Engineer Software Validation Engineer Caregiver Provides Assist M6 OT- IP Functional Cognition Start: 09/06/24 10:33 Freq: Status: Active Protocol: Document 09/06/24 10:34 [facility] (Rec: 09/06/24 10:49 [facility] Desktop) Cognitive Factors Limiting Selfcare Function Cognitive Ability Level of Alertness Alert Patient Orientation Name,Age,Birthday,Month,Date,Year,Day of Week,Place, Situation Attention Span Capable of Focused Attention,Capable of Sustained Ability Attention Ability to Follow Able to Follow Multi-Step Commands Commands Cognitive Comments Cognitive Assessment Pt intact for all needs. Able to get clarification for Comments pt's sx okay to be able to cone picker her dog. Encouraged pt to use her 4ww initially at home. OT- Vision and Hearing OT- Hearing Assessment OT- Hearing WFL Assessment M7 OT- IP Mobility and Balance Start: 09/06/24 10:33 Freq: Status: Active Protocol: Document 09/06/24 10:34 [facility] (Rec: 09/06/24 10:49 [facility] Desktop) OT-Transfer Assessment Sit to and From Stand Sit to and from Standby Assistance Stand Transfers Transfer Ability Standby Assistance,Contact Guard Assistance Technique Transfer Destination Bed,Chair,Toilet Transfer Technique Stand Step Pivot Devices Transfer Assistive None,Gait Belt Devices Comments Mobility Comments CGA without a device and tends to hold onto surfaces. Best at this time to use her 4ww to help promote symmetry during walking and balance. OT- Balance Assessment Sitting Balance and Reactions Static Sitting Normal Balance Ability Dynamic Sitting Normal Balance Ability Standing Balance and Reactions Static Standing Good Balance Ability Dynamic Standing Fair Balance Ability M8 OT- IP Objective Assessments Start: 09/06/24 10:33 Freq: Status: Active Protocol: Document 09/06/24 10:34 [facility] (Rec: 09/06/24 10:49 [facility] Desktop) OT Gross Range of Motion Upper Extremity Range of Motion Assessment Within Functional Limits OT Strength Upper Extremity Strength Assessment Within Functional Limits M9 OT- IP Assessment and Plan Start: 09/06/24 10:33 Freq: Status: Active Protocol: Document 09/06/24 10:34 [facility] (Rec: 09/06/24 10:49 [facility] Desktop) OT Summary Assessment and Plan Potential Rehabilitation Excellent Potential Analytic Complexity Low at Evaluation Summary OT Impairments Pain,Balance,Functional Mobility,Dressing,Bathing, Shower Transfers Progress Towards Progressing Toward Goals Goals Assessment Summary Pt low complexity and main barriers are pain, and will benefit from use of 4ww as noted unsteady without use of device. Pt to go home with assist and have outpt PT. Goals Self-Feeding Goal Independent Grooming Goal Independent Dressing Goal Independent Toileting Goal Independent Bathing Goal Independent Toilet Transfer Goal Independent Shower Transfer Goal Independent Days to Meet Goals 5 Frequency of Treatment Other frequency 5x/week Treatment Plan OT Treatment Plan ADL Training,Functional Mobility,Patient/Family Education,Discharge Planning Discharge Recommendations OT Discharge Home with Assistance,Outpatient PT Recommendations Transportation Needs Private Vehicle at Discharge
--- NOTE | 2024-09-06 09:33 | PT.IPTN ---
Current Diagnoses Unilateral primary osteoarthritis, right hip (09/05/24) Surgery Performed Operation Date: 09/05/24 07:45 Actual Procedures p Total Hip Arthroplasty/Anterior Approach(Right) - Gretta Ramirez MD Physical Therapy Treatment Note M2 PT-IP Current Condition Start: 09/05/24 17:52 Freq: NEEDED Status: Active Protocol: Document 09/05/24 16:45 AB (Rec: 09/05/24 18:04 AB [id number]) Physical Therapy Current Condition Current Condition Evaluation Date 09/05/24 Treatment Diagnosis s/p R STEFANIE anterior; difficulty in walking Onset Date 09/05/24 M3 PT-IP Subjective Start: 09/05/24 17:52 Freq: NEEDED Status: Active Protocol: Document 09/06/24 09:13 MB (Rec: 09/06/24 09:33 MB Desktop) Subjective Physical Therapy Visit Type Type Treatment Note Visit Start Time 09:13 Visit Stop Time 09:21 Number of ENGLISH AS A SECOND LANGUAGE INSTRUCTOR Visits 0 Physical Therapy Visit Comments Patient Comments Pt is agreeable to PT. Therapy Pain Assessment Pain When Pain Assessed At Rest Pain Present Pain Present Pain Reported Location Right Hip Intensity 3 Scale Used Numeric (0 - 10) M4 PT-IP Mobility and Gait Start: 09/05/24 17:52 Freq: NEEDED Status: Active Protocol: Document 09/06/24 09:13 MB (Rec: 09/06/24 09:33 MB Desktop) PT-Transfer Assessment Sit to and From Stand Sit to and from Standby Assistance Stand Equipment Transfer Assistive Gait Belt,Front Wheeled Walker Device Orthotic/Prosthetic No Devices or Brace: Transfers Transfer Destination Chair Transfer Technique ambulated Transfer Ability Level of Assist Standby Assistance,1 Person Assistance,Use of Upper Extremities Gait Assessment Gait Gait Assistance Standby Assistance,1 Person Assist Required: Distance (Feet) 80 Assistive Devices Assistive Device Gait Belt,Front Wheeled Walker Gait Deviations General Gait Pattern Antalgic,Decreased Stride Length,Decreased Feet Clearance,Step-to Gait Factors Limiting Gait Function Factors Limiting Pain Gait Function Comments Gait Comments 80'x2 and pt con't with antalgic gait POD1 Stair Climbing Assessment Evaluation Level of Assist On Standby Assistance,1 Person Assistance Stairs Devices Stair Climbing Left Railing,Right Railing Assistive Devices Technique/Endurance Stair Climbing Ascend and Descend Direction Stair Climbing Step to Step Technique Number of Steps 3 Climbed Stair Climbing Set # 2 Repetitions (reps) Comments Stair Climbing Pt will use spiral staircase at home that has two rails Comments and she demonstrates step-to stepping well after trying reciprocal and not being able to tolerate at this time, cues to keep walker close to her in the house when she is sitting PT-Balance Assessment Sitting Balance and Reactions Static Sitting Normal Balance Ability Dynamic Sitting Good Balance Ability Standing Balance and Reactions Static Standing Good Balance Ability Dynamic Standing Good Balance Ability Device Used RW M5 PT-IP Objective Assessments Start: 09/05/24 17:52 Freq: NEEDED Status: Active Protocol: Document 09/05/24 16:45 AB (Rec: 09/05/24 18:04 AB [id number]) Orientation Orientation/Cognition Level of Alertness Alert Orientation Name,Place,Situation Language Function Hard of Hearing Ability Safety Awareness Decreased Safety Awareness Memory Description Short Term Impaired Strength Lower Extremity Strength Assessment Right Impaired Hip 3-/5 Knee 3+/5 Sensation Assessment Sensation Sensation Numbness Description Comments Sensation Comments c/o buttocks numbness Muscle Tone Muscle Tone WNL Yes M6 PT-IP Treatment Start: 09/05/24 17:52 Freq: NEEDED Status: Active Protocol: Document 09/06/24 09:13 MB (Rec: 09/06/24 09:33 MB Desktop) Physical Therapy Treatment Exercises Exercises Ankle Pumps,Gluteal Sets,Quad Sets,Heel Slides Education Education Provided Safety M7 PT-IP Assessment and Plan Start: 09/05/24 17:52 Freq: NEEDED Status: Active Protocol: Document 09/06/24 09:13 MB (Rec: 09/06/24 09:33 MB Desktop) PT Summary Assessment and Plan Potential Rehabilitation Good Potential Status of Condition Evolving at Evaluation Summary Impairments Pain,ROM,Strength,Balance,Coordination,Bed Mobility, Transfers,Gait,Activity Tolerance Progress Towards Progressing Toward Goals Goals Assessment Summary Pt progresses with transfer, gait and performs stair training today. She will use spiral steps at home that have two rails she can reach. She has OPP[facility] at [facility]. Goals Bed Mobility Goal Independent Transfer Goal Independent,Four Wheeled Walker Gait Goal Independent,Four Wheel Walker Gait Distance 200 Other Goals up/down 17 steps R rail ascending SBA Days to Meet Goals 5 Frequency of Treatment Frequency Of Discharge Treatment Precautions Other Precautions No hyperextension right hip Weight Bearing Status Allowed Weight WBAT RLE Bearing Amount ( enter % or #) (%) Recommendations To Nursing Amount of Assist Standby Assistance Needed Discharge Recommendations PT Discharge Home with Assistance,Outpatient PT Recommendations Transportation Needs Private Vehicle at Discharge - PT assist x1
--- NOTE | 2024-09-06 10:21 | PC.NURSE ---
SHELBI Lynn removed PIV, pt tolerated well. Provided discharge education to pt and spouse on medications, activity, diet, signs and symptoms of infection, ADLs, and follow up. Pt and spouse stated all questions answered. No belongings in safe, pharmacy, or nurse rubber thread spooler drawer. Pt escorted by SHELBI Lynn via WC with to PO.
--- NOTE | 2024-09-06 12:25 | CM.DANOTE ---
B DCP Assessment note pt is a 64yo F admitted POD1 right total hip PCP [facility] and self pay Payer Yaz Ordaz MSW reviewed EMR. per PT/OT, cleared for home with assistance. has necessary DME. ATM MECHANIC attempted to meet with pt in room, showering with OT at time of attempted assessment. pt left prior to being seen by this ATM MECHANIC P: dc home today with OP f/u. no further CM needs identified at this time. will continue to follow as needed for DCP coordination ASIF Figueroa Discharge Planning/Care Management CM Discharge Assessment Start: 09/05/24 06:11 Freq: Status: Discharge Protocol: Document 09/06/24 12:24 [facility] (Rec: 09/06/24 12:25 [facility] Desktop) Discharge Planning Assessment Assigned Discharge ASIF Vaughn V Groove Cutter DPOA/Assigned Davy, partner Designee Name Contact Information [phone] Advance Directives? Yes Advance Directives No on File History Provided By Patient,Medical Record Prior Living House Arrangements Household Members spouse Independent with ADL Yes 's Is patient alert and Yes oriented? Discharge Plan Home Review Status In Process Please Provide Date 09/06/24 Initial DC Assessment Was Performed Next Review Type Continued Stay Review Pre-Anesthesia Assessment Start: 08/28/24 09:48 Freq: Status: Discharge Protocol: Document 08/28/24 09:48 [facility] (Rec: 08/28/24 10:43 CAB [id number]) Pre-Anesthesia Assessment PAC Comment Phone assessment 08/28/24 Patient Information Phone Assessment Reviewed Via Assessment Completed Patient With Diagnostic Results BMP/CMP,CBC,EKG Comment Labs/EKG @ [facility] 07/27/24 Primary Care Yaz Oradz Provider Seen Specialist in Yes Last 12 Months Specialist Seen Oncologist,Orthopedist Primary Language Mongolian National Account Manager Required No Height 154.94 cm Weight 47.174 kg Body Mass Index (BMI 19.6 ) Hearing Ability Normal Visual Assist Glasses Dentition Type Teeth, Natural Present Barriers to Learning Visual Other Aids No Hx Anesthesia No Reactions Hx Family Anesthesia No Reaction Hx Malignant No Hyperthermia Hx Blood Yes: 5 units due to bleeding from endometrial cancer ' Transfusions 22 Anesthesia Review No Requested Wash Oil Pump Operator Helper No alcohol intake former Smoking Status Never smoker Substance Use Type [ does not use #R] Pain Present Pain Reported Musculoskeletal Abnormal Gait,Back Pain,Difficulty Walking,Joint Pain, Symptoms Neck Pain History of Falling ( Yes Recent or History of ) Patient is No completely paralyzed or completely immobile Mental Status Oriented to own ability Is patient on oxygen No ? Does patient have No TORRES/SOB Hx Sleep Apnea No Currently Taking a No Beta Silver Can You Climb a Yes Flight of Stairs Without SOB Hx Chest Pain No Hx SOB No Hx Syncope or No Dizziness Anti-Coagulant No Therapy Has a Transfer Machine Operator No Cardiac Testing No Hx Pacemaker/ICD No Pacemaker Rep No Required? Cardiac Clearance No Received Dysphagia No Gastrointestinal None Symptoms Chronic UTI No Urinary Catheter No Present Hx Urinary Self No Catheterization Diabetes No HgbA1C 5.5 Date 07/27/24 Patient No Lactating No Hx Drug Resistant No Organism Presence of External Yes: Left hip prosthesis, cervical hardware or Internal Medical Devices Received a COVID No: education / vaccine offered & refused. vaccine? Marital Status Lives With spouse Current Living House Arrangements Number of Floors ( Two Floors Floors) Number of Stairs To 17 Enter/Railing? Support System Spouse Does the Patient Yes Have Assistance After Surgery Patient Discharge Return Home Plan Description Comment Pt advised same day surgery per surgeon Feels Safe in Yes Current Environment Been Physically Hurt No or Threatened By a Person in Current Environment Do you have thoughts None of harming yourself or others? Are you currently No considering suicide? Do you have a plan No Plan to hurt yourself or others? Do You Have Any No Spiritual Beliefs That May Affect Your HC Choices? Do You Have Any No Cultural Practices That May Affect Your HC Choices? Comment Hoahaoism Who Can We Speak to Family, friends About Patient's Care Identifying Code for Declines to issue Release of Patient Information Health Care Proxy/ Davy Last () Next of Kin Health Care Proxy [phone] Phone Number Emergency Contact Davy Last () Name Emergency Contact [phone] Phone Number Advance Directives? Yes Advance Directives No on File Requested Patient Yes Bring Advanced Directives DOS Power of Indoor Plant Technician Yes Power of Indoor Plant Technician Davy Last () Name Power of Indoor Plant Technician [phone] Phone Number PAC Instructions Assistance for 24 hours post-op,Do not shave/clip surgical site,Durable medical equipment,Medications to take/avoid,Nasal antibiotic,No ETOH/petroleum product on skin DOS,NPO,Post-op transportation,Pre-surgical wash,Sturdy shoes/comfortable clothes,Do not bring valuables and remove jewelry
== END 2024-09-06 10:22 | disposition home or self-care (01) ==
LOC: OR 06:06 → AC 06:07
PROVIDERS: PCP Family Medicine; Referring Provider Orthopaedic Surgery; Visit Provider Orthopaedic Surgery
PROC: (CPT 27130; principal; 2024-09-05 07:45)
DX: M16.11 Unilateral primary osteoarthritis, right hip (principal); M25.751 Osteophyte, right hip
CPT/HCPCS: 27130; 36415; 73502; 76000; 85014; 85018; 97116; 97162; 97165; 97530; 97535; C1776; J0666; J0690; J1100; J1171; J2250; J2405; J2704; J3010

== ENCOUNTER → 2024-11-12 11:54 | Outpatient (CLI) | payer OTHER, SELFPAY ==
[2024-09-05 12:06] VITALS: BMI 20.4
--- NOTE | 2024-11-12 11:56 | DI.MG.S_ITS ---
MM screening mammo BI: 11/12/2024. BI-RADS: 1 CLINICAL: 64-year old female for bilateral screening mammogram. Tyrer-Cuzick lifetime risk of 5.1%. No personal or first-degree family history of breast cancer. PRIOR EXAMS: 11/11/2023, 11/09/2022, 11/09/2021, 10/26/2021, 12/17/2019, 12/14/2018, 12/16/2017, 12/01/2017, 11/29/2016, 11/28/2015, 11/26/2014. MAMMOGRAPHY TECHNIQUE: 2D and 3D (tomosynthesis) digital mammographic views obtained, with additional images as needed for full coverage. Current study was also evaluated with a Computer Aided Detection (CAD) system. DENSITY C. The breasts are heterogeneously dense, which may obscure small masses. MAMMOGRAPHY FINDINGS Bilateral: No suspicious mass, asymmetry, microcalcification, or other abnormality seen. IMPRESSION: * No evidence of malignancy. RECOMMENDATIONS Bilateral * Annual screening mammography. OVERALL ASSESSMENT CATEGORY BI-RADS-1: Negative. The [employer] recommends annual screening mammography beginning at age 40 for women with average risk of breast cancer. ELECTRONICALLY SIGNED: Tracy Brown M.D. on 11/12/2024 at 02:32:00 PM PT Interpreting Station ID: [id number]
== END ==
LOC: MAMMO 11:55
PROVIDERS: PCP Family Medicine; Referring Provider Family Medicine; Visit Provider Family Medicine
DX: Z12.31 Encounter for screening mammogram for malignant neoplasm of breast (principal); R92.333 Mammographic heterogeneous density, bilateral breasts
CPT/HCPCS: 77063; 77067